=== PATIENT | female | born 1935 | race Caucasian/White ===

== ENCOUNTER 2016-05-23 15:00 | Inpatient (IN) | payer OTHER ==
--- NOTE | ~2016-05-23 | FU ---
[facility] Nutrition Therapy DATE: 05/29/16 Patient: YANET RYDER Physician: VALERIE Address: [address] [place] [address] Room/Bed: [address] [place] [address], Zip: [place] [address] Admit Date: 05/23/16 Date of : 34 Height: 5 2 Weight: 145 65.8 NUTRITION MONITORING/FOLLOW-UP: Reason: Nutrition follow-up Anthropometrics: no new weight, BMI: 24.5 Labs: No new labs Meds: PPI, Vit D, Vit B12, NSIV @ 60 ml/hr, Laxative prn, Zofran prn, Solu-cortef GI: LBM 05/27, denies N/V/D Skin: Dry skin/bruise noted, no edema Assessment: Chart reviewed, events noted. Patient upgraded to regular diet on 05/24, Ensure not reordered. Patient reports consuming 50% or > of meals TID and does not want ONS reordered. Denies N/V/D or any chewing/swallowing difficulties. States she just wants to go home. No new weight. Previous nutrition goals met, nutrition dx remains with improvement. Dx: Inadequate nutrient intake r/t decreased appetite AEB 10-13% severe body weight loss - ACTIVE, WITH IMPROVEMENT Intervention: None at this time Monitoring, Evaluation and Goals: MET 1. PO 50% of meals or greater. 2. Prevent unintentional weight loss. Monitor: Per protocol, criteria to determine if above goals met Recommendations: Continue regular diet. Status: Mild nutrition risk Respectfully, [facility] Nutrition Therapy DATE: 05/29/16 Patient: YANET RYDER Physician: VALERIE Address: [address] [place] [address] Room/Bed: [address] [place] [address], Zip: [place] [address] Admit Date: 05/23/16 Date of : 34 Height: 5 2 Weight: [address], [facility] cc: client file
--- NOTE | ~2016-05-23 | A ---
[facility] Nutrition Therapy DATE: 05/24/16 Patient: YANET RYDER Physician: VALERIE Address: [address] [place] [address] Room/Bed: [address] [place] [address], Zip: [place] [address] Admit Date: 05/23/16 Date of : 34 Height: 5 2 Weight: 145 65.8 NUTRITIONAL ASSESSMENT: REASON: 4 NUTRITION RISK PT RE: WEIGHT LOSS, ALSO CONSULT RECEIVED PT IS 81 Y.O. FEMALE ADMITTED FOR DEHYDRATION PMH: NO RECENT H&P IN [facility]. PER CHART/PAST NOTES: COPD, CAD, HTN, HLD, COLITIS, GASRITIS, MENIERE DISEASE Anthropometrics: 5'2", WT: 134# (PER PT) (61 KG), BMI: 24.5 -PER [facility], 145# OTHER HEIGHT LISTED Labs: BUN: 28, ALB: 3.0, GFR: 50.5 Meds: NACL, ZOFRAN, LAXATIVE, VIT D & B12, PROTONIX I/O & Bowel function: 1200/- Skin Integrity: DRY SKIN NOTED ALL OVER BODY Estimated Nutrition Needs: INCREASED NUTRIENT NEEDS 2' WEIGHT LOSS NOTED, DECREASED PO INTAKE AND APPETITE NOTED, PMH CANCER Assessment: CHART REVIEWED AND EVENTS NOTED. PT SEEN FOR WEIGHT LOSS. PT REPORTS DECREASED PO INTAKE 2' DECREASED APPETITE PAST SEVERAL MONTHS. PT REPORTS UBW IS ~150#/NOTES LOSING ~15-20# SINCE OCTOBER 2015 (6 MONTHS)10-13% SEVERE WEIGHT LOSS NOTED. PT REPORTS LOSING WEIGHT SINCE HER LUNG CANCER DIAGNOSIS S/P RADIATION AND CHEMOTHERAPY. THIS RD ENCOURAGED ADEQUATE KCAL, PROTEIN AND FLUID INTAKE, PT AGREED TO ENSURE SHAKES BID + ENSURE PUDDING ONCE DAILY. PT REPORTED NO DIET QUESTIONS AT THIS TIME. RD TO FOLLOW. SEE RECOMMENDATIONS BELOW. Dx: INADEQUATE NUTRIENT INTAKE R/T DECREASED APPETITE AEB PT REPORT ABOVE, 10-13% SEVERE WEIGHT LOSS NOTED. Intervention: 1. MECHANICAL GROUND DIET 2. ENSURE SHAKES BID 3. ENSURE PUDDING BID Monitoring, Evaluation and Goals: 1. PO INTAKE; PROVIDE AND CONSUME ADEQUATE NUTRITION W/NO C/O N/V/D (PO>50%) 2. WEIGHTS; PREVENT FURTHER WEIGHT LOSS 3. GI; PROMOTE REGULAR GI FUNCTION 4. LABS; WNL [facility] Nutrition Therapy DATE: 05/24/16 Patient: YANET RYDER Physician: VALERIE Address: [address] [place] [address] Room/Bed: [address] [place] [address], Zip: [place] [address] Admit Date: 05/23/16 Date of : 34 Height: 5 2 Weight: 145 65.8 MONITOR: -PO INTAKE/APPETITE -WEIGHTS -SUPPLEMENT INTAKE Recommendations: 1. ORDER ROBB ENSURE SHAKES BID W/MEALS 2. ORDER ROBB ENSURE PUDDING ONCE DAILY W/LUNCH MEAL 3. APPRECIATE FAMILY AND STAFF TO ENCOURAGE ADEQUATE KCAL, PROTEIN AND FLUID INTAKE RD WILL F/U PER PROTOCOL PT IS MODERATELY COMPROMISED Respectfully, JOHNNY DOLAN MS, RD, LD [facility] cc: client file
--- NOTE | ~2016-05-23 | DS ---
Unit #: [id number] #: [id number] Patient: MADISON SMITH [id number] [address] [address] [id number] MR#: [id number] NAME: MADISON SMITH. ROOM: 232 Age: 81 Sex: F Admission Date: 05/23/2016 : 1935 Discharge Date: 05/30/2016 Attending Physician: Maurilio Rodriguez M.D. Primary Care Physician: Luzma Coyle M.D. DISCHARGE SUMMARY PRINCIPAL DIAGNOSES 1. Neutropenic sepsis secondary to #2 Klebsiella pneumoniae. 2. Klebsiella pneumoniae bacteremia. 3. Pancytopenic secondary to antineoplastic chemotherapy and radiation. 4. Moderate protein calorie malnutrition. 5. Radiation esophagitis. 6. Dehydration. 7. Cancer of the cecum. 8. Extensive small cell lung cancer. DISCHARGE MEDICATIONS Continue IV Rocephin 2 grams IV q.24 h. to be taken until 06/08/2016. Please see medication discharge summary. FOLLOWUP Office in two weeks. HOSPITAL COURSE Please see History and Physical for details of admission. 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 She has had weakness, dehydration, severe radiation esophagitis. Following admission, she was started on IV fluids, pain medications and became rapid pancytopenic. She was started on Granix but became febrile. Blood cultures grew Klebsiella pneumoniae sensitive to Maxipime which was started on and later switched over to cefepime. She received one dose of IV tobramycin. Granix was continued and she remained neutropenic until her discharge date but did become afebrile on IV antibiotics. She was seen by Dr. Dobbins of [place] and he recommended switching antibiotics to Rocephin 2 grams IV daily to be taken until 06/08/2016 without sacrifice of Mediport as it was felt that the most likely source of her bacteremia was gastrointestinal, most probably related to her cecal carcinoma. During hospitalization she received multiple units of packed cells for severe anemia, as well as replacement of electrolytes. Unit #: [id number] #: [id number] Patient: MADISON SMITH Dictated by... Maurilio Rodriguez M.D. [facility]/mega TD: 05/30/2016 23:27 JOB #: [id number] DISCHARGE SUMMARY X Maurilio Rodriguez MD DISCHARGE SUMMARY
[~2016-05-23 15:00] MED LIST: ACETAMINOPHEN PO; ADVAIR 250-501 EACH IH; ALBUTEROL17 GM INH; ALDACTONE25 MG PO; AMBIEN PO; AMLODIPINE BESY10 MG PO; ASPIR-TRIN325 MG; ASPIRIN EC81 M1 PO; ASPIRIN81 M1 PO; AUGMENTIN PO; AURALGAN EAR DR14 ML OT; AVALIDE 150-12.1 TAB PO; AZITHROMYCIN250 MG PO; BENZONATATE PO; CIPRO HC OTIC S10 ML AS; CIPRO PO; COMBIVENT U/D3 ML INH; COREG3.125 MG; FLAGYL PO; HCTZ PO; HYDROCHLOROTHIA25 MG PO; IBUPROFEN PO; LEVAQUIN PO; LIPITOR PO; LIPITOR20 MG PO; LISINOPRIL PO; LISINOPRIL20 MG PO; LOPRESSOR PO; LOSARTAN POTAS100 MG PO; MEDI-MECLIZINE25 M1 PO; MEDROL4 MG/DOSE- PO; METOPROLOL TAR25 MG PO; MOTION SICKNESS25 M5 PO; MOTRIN400 MG PO; MUCINEX DM ER1 EACH PO; NEXIUM PO; NICOTINE TRANSD21 MG EXT; NITROGLYGERIN0.4 MG; NITROGLYGERIN0.4 MG SL; NORVASC10 MG PO; NORVASC2.5 MG PO; PANTOPRAZOLE SO40 MG PO; PLAVIX PO; PREDNISONE PO; PREDNISONE10 MG/DOSE PO; PRILOSEC PO; PRILOSEC20 M1 PO; PRILOSEC20 MG PO; PRINIVIL40 MG PO; PROTONIX PO; ROBAXIN500 MG PO; ROBITUSSIN-DM120 ML PO; ROBITUSSIN15 MG/5 ML PO; SIMVASTATIN20 MG; SIMVASTATIN40 MG PO; SPIRIVA18 MCG INH; TUSSIN MAX15 MG/5 M1 PO; TUSSIONEX PENN473 ML PO; VICODIN 5/500 T1 TAB PO; ZESTORETIC 20/11 TAB PO; ZITHROMAX PO; ZOCOR PO
[2016-05-23] MEDS ORDERED: VITAMIN B122500 MCG PO (16:39)
[2016-05-23] MEDS ORDERED: VITAMIN D50000 UNIT PO (16:42)
[2016-05-23] MEDS ORDERED: LIPITOR40 MG PO (16:44)
[2016-05-23 17:38] LABS: HEMATOCRIT 27.3 % (35.0-45.0); HEMOGLOBIN 9.3 gm/dL (12.0-16.0); MEAN CELL VOLUME 91.1 FL (83-96); MEAN PLATELET VOLUME 7.3 FL (6.5-11.5); WHITE BLOOD COUNT 3.1 X10e3 (4.0-10.5)
[2016-05-23 18:05] LABS: ALBUMIN SERUM 3.9 g/dL (3.5-5.0); BILIRUBIN,TOTAL 0.9 mg/dL (0.2-2.0); BUN/CREATININE RATIO 24.61; CREATININE SERUM 1.3 mg/dL (0.6-1.4); GLOM FILT RATE Estimated 41.7 mL/min (>60); POTASSIUM 3.7 mmol/L (3.5-5.1); PROTEIN TOTAL SERUM 7.3 g/dL (6.0-8.3)
[2016-05-24 06:35] LABS: HEMATOCRIT 21.5 % (35.0-45.0); MEAN CELL VOLUME 90.7 FL (83-96); MEAN CORPUSCULAR HEMOGLOBIN 30.1 PG (28-34); MEAN CORPUSCULAR HGB CONC 33.2 g/dL (30-36); MEAN PLATELET VOLUME 7.5 FL (6.5-11.5); RED BLOOD COUNT 2.37 X10e (3.90-5.30); RED CELL DISTRIBUTION WIDTH 26.4 % (11.0-15.5)
[2016-05-24 06:38] LABS: HEMOGLOBIN 7.1 gm/dL (12.0-16.0); WHITE BLOOD COUNT 1.3 X10e3 (4.0-10.5)
[2016-05-24 07:02] LABS: BILIRUBIN,TOTAL 0.6 mg/dL (0.2-2.0); BUN/CREATININE RATIO 25.45; CALCIUM SERUM 8.4 mg/dL (8.4-10.2); CREATININE SERUM 1.1 mg/dL (0.6-1.4); GLOM FILT RATE Estimated 50.5 mL/min (>60); MAGNESIUM 1.6 mg/dL (1.6-3.0); PHOSPHOROUS 3.1 mg/dL (2.5-4.6); POTASSIUM 3.8 mmol/L (3.5-5.1); PROTEIN TOTAL SERUM 5.8 g/dL (6.0-8.3)
[2016-05-24 10:55] LABS: IRON SERUM 87 ug/dL (28-170); TOTAL IRON BINDING CAPACITY 267 ug/dL (269-535); TRANSFERRIN 191 mg/dL (192-382); TRANSFERRIN SATURATION 33 % (20-50)
[2016-05-24 11:03] LABS: FERRITIN 736 ng/mL (11-307)
[2016-05-25 06:32] LABS: HEMATOCRIT 23.6 % (35.0-45.0); HEMOGLOBIN 7.9 gm/dL (12.0-16.0); MEAN CELL VOLUME 89.7 FL (83-96); MEAN CORPUSCULAR HEMOGLOBIN 30.1 PG (28-34); MEAN CORPUSCULAR HGB CONC 33.6 g/dL (30-36); MEAN PLATELET VOLUME 7.5 FL (6.5-11.5); RED BLOOD COUNT 2.63 X10e (3.90-5.30); RED CELL DISTRIBUTION WIDTH 23.3 % (11.0-15.5)
[2016-05-25 06:48] LABS: WHITE BLOOD COUNT 0.5 X10e3 (4.0-10.5)
[2016-05-25 06:59] LABS: CALCIUM SERUM 8.2 mg/dL (8.4-10.2); GLOM FILT RATE Estimated 56.4 mL/min (>60); MAGNESIUM 1.4 mg/dL (1.6-3.0); POTASSIUM 3.5 mmol/L (3.5-5.1)
[2016-05-26 05:46] LABS: HEMATOCRIT 23.9 % (35.0-45.0); HEMOGLOBIN 8.1 gm/dL (12.0-16.0); MEAN CELL VOLUME 90.5 FL (83-96); MEAN CORPUSCULAR HEMOGLOBIN 30.6 PG (28-34); MEAN CORPUSCULAR HGB CONC 33.8 g/dL (30-36); MEAN PLATELET VOLUME 8.4 FL (6.5-11.5); RED BLOOD COUNT 2.64 X10e (3.90-5.30); RED CELL DISTRIBUTION WIDTH 22.7 % (11.0-15.5); WHITE BLOOD COUNT 0.3 X10e3 (4.0-10.5)
[2016-05-26 07:13] LABS: BLOOD UREA NITROGEN 14 mg/dL (9-23); BUN/CREATININE RATIO 15.55; CALCIUM SERUM 8.2 mg/dL (8.4-10.2); CARBON DIOXIDE 19 mmol/L (22-31); CHLORIDE 109 mmol/L (100-111); CREATININE SERUM 0.9 mg/dL (0.6-1.4); GLOM FILT RATE Estimated ABOVE60 mL/min (>60); GLUCOSE FASTING 100 mg/dL (70-110); MAGNESIUM 1.6 mg/dL (1.6-3.0); POTASSIUM 3.5 mmol/L (3.5-5.1); SODIUM 137 mmol/L (135-145)
[2016-05-27 05:27] LABS: HEMATOCRIT 19.9 % (35.0-45.0); MEAN CELL VOLUME 90.7 FL (83-96); MEAN CORPUSCULAR HEMOGLOBIN 31.1 PG (28-34); MEAN CORPUSCULAR HGB CONC 34.2 g/dL (30-36); MEAN PLATELET VOLUME 8.9 FL (6.5-11.5); RED BLOOD COUNT 2.19 X10e (3.90-5.30); RED CELL DISTRIBUTION WIDTH 22.1 % (11.0-15.5); WHITE BLOOD COUNT 0.3 X10e3 (4.0-10.5)
[2016-05-27 05:29] LABS: HEMOGLOBIN 6.8 gm/dL (12.0-16.0)
[2016-05-28 06:56] LABS: HEMATOCRIT 27.2 % (35.0-45.0); MEAN CELL VOLUME 90.1 FL (83-96); MEAN CORPUSCULAR HEMOGLOBIN 30.4 PG (28-34); MEAN CORPUSCULAR HGB CONC 33.7 g/dL (30-36); MEAN PLATELET VOLUME 8.6 FL (6.5-11.5); RED BLOOD COUNT 3.02 X10e (3.90-5.30); RED CELL DISTRIBUTION WIDTH 19.6 % (11.0-15.5)
[2016-05-28 06:59] LABS: HEMOGLOBIN 9.2 gm/dL (12.0-16.0); WHITE BLOOD COUNT 0.5 X10e3 (4.0-10.5)
[2016-05-28 14:55] LABS: URINE SOURCE CLEAN CATCH
[2016-05-28 17:14] LABS: URINE APPEARANCE CLEAR; URINE BILIRUBIN NEG (NEG); URINE BLOOD 1+ (NEG); URINE COLOR YELLOW; URINE GLUCOSE NEG (NEG); URINE KETONE NEG (NEG); URINE LEUKOCYTE ESTERASE NEG (NEG); URINE NITRATE NEG (NEG); URINE PROTEIN TRACE (NEG); URINE SPECIFIC GRAVITY 1.012 (1.003-1.035); URINE UROBILINOGEN 0.2 MG/DL (NEG)
[2016-05-28 17:17] LABS: URINE BACTERIA AUWI NEG (NEGATIVE); URINE SQUAMOUS EPITHELIAL CELL OCC /[HPF]
[2016-05-28 17:25] LABS: CULTURE INDICATED? NO
[2016-05-29 06:25] LABS: HEMATOCRIT 27.4 % (35.0-45.0); HEMOGLOBIN 9.4 gm/dL (12.0-16.0); MEAN CORPUSCULAR HEMOGLOBIN 30.4 PG (28-34); MEAN CORPUSCULAR HGB CONC 34.2 g/dL (30-36); MEAN PLATELET VOLUME 8.6 FL (6.5-11.5); RED BLOOD COUNT 3.09 X10e (3.90-5.30); RED CELL DISTRIBUTION WIDTH 18.7 % (11.0-15.5)
[2016-05-29 06:26] LABS: WHITE BLOOD COUNT 1.2 X10e3 (4.0-10.5)
[2016-05-30] MEDS ORDERED: CEFTRIAXONE2 GM IV (08:55)
[2016-05-30 08:59] LABS: HEMATOCRIT 29.4 % (35.0-45.0); MEAN CELL VOLUME 88.8 FL (83-96); MEAN CORPUSCULAR HEMOGLOBIN 30.2 PG (28-34); MEAN PLATELET VOLUME 8.7 FL (6.5-11.5); RED BLOOD COUNT 3.31 X10e (3.90-5.30); RED CELL DISTRIBUTION WIDTH 19.1 % (11.0-15.5)
[2016-05-30 09:13] LABS: WHITE BLOOD COUNT 5.3 X10e3 (4.0-10.5)
[2016-05-30 11:23] LABS: ALBUMIN SERUM 2.8 g/dL (3.5-5.0); ALKALINE PHOSPHATASE 85 U/L (32-92); ALT (SGPT) 15 U/L (10-40); AST (SGOT) 17 U/L (10-42); BILIRUBIN,TOTAL 0.6 mg/dL (0.2-2.0); BLOOD UREA NITROGEN 9 mg/dL (9-23); BUN/CREATININE RATIO 11.25; CALCIUM SERUM 8.4 mg/dL (8.4-10.2); CARBON DIOXIDE 21 mmol/L (22-31); CHLORIDE 110 mmol/L (100-111); CREATININE SERUM 0.8 mg/dL (0.6-1.4); GLOM FILT RATE Estimated ABOVE60 mL/min (>60); GLUCOSE FASTING 88 mg/dL (70-110); PROTEIN TOTAL SERUM 5.7 g/dL (6.0-8.3); SODIUM 139 mmol/L (135-145)
[2016-05-30 11:25] LABS: POTASSIUM 2.9 mmol/L (3.5-5.1)
== END 2016-05-30 14:55 | disposition home health service (06) | DRG 808 ==
LOC: C2A 15:00
PROVIDERS: Internal Medicine; Internal Medicine Hematology & Oncology; Nurse Practitioner Family
PROC: 30233N1 Transfusion of Nonautologous Red Blood Cells into Peripheral Vein, Percutaneous Approach (ICD-10-PCS; principal; 2016-05-24)
DX: D61.810 Antineoplastic chemotherapy induced pancytopenia (principal); A41.89 Other specified sepsis; C78.5 Secondary malignant neoplasm of large intestine and rectum; E44.0 Moderate protein-calorie malnutrition; B96.1 Klebsiella pneumoniae [K. pneumoniae] as the cause of diseases classified elsewhere; C34.90 Malignant neoplasm of unspecified part of unspecified bronchus or lung; Z16.19 Resistance to other specified beta lactam antibiotics; K20.8 Other esophagitis; Z68.24 Body mass index [BMI] 24.0-24.9, adult; R50.81 Fever presenting with conditions classified elsewhere
CPT/HCPCS: 80048; 80053; 81003; 82607; 82728; 83540; 83550; 83735; 84100; 85027; 86850; 86900; 86901; 86923; 87040; 87077; 87086; 87186; C9113; J0692; J0696; J1170; J1447; J1450; J1642; J1650; J2405; J3260; J3475; P9016

== ENCOUNTER 2016-06-10 10:04 | Observation (INO) | payer OTHER ==
--- NOTE | ~2016-06-10 | CT4 ---
[facility] A Service of [facility] RADIOLOGY TEXT RESULTS PATIENT: YANET RYDER LOCATION: [facility] [id number] : 34 UNIT #: [id number] AGE: [address]: Madhuri Yu MD SEX: F ORDER DR: [id number] [facility] [address] [facility]. [place], [place] [address] [id number] I MR#: [id number] Acc #: [id number] NAME: YANET RYDER. : 1935 SEX: F STUDY DATE/TIME: 06/10/2016 12:30 UNIT: [id number] ROOM: [facility] STUDY DESCRIPTION: CT Abd and Pelv Wo Cont Attending Physician: Madhuri Yu M.D. Ordering Physician: Epifanio Nunez M.D. Primary Care Physician: Luzma Coyle M.D. MEDICAL IMAGING REPORT This report is preliminary unless electronic signature is present EXAM CT abdomen and pelvis without contrast 06/10/2016 HISTORY 81-year-old female with abdominal pain for 3 days. History of lung cancer. Patient is status post appendectomy and cholecystectomy. COMPARISON CT abdomen and pelvis 03/23/2010 TECHNIQUE Helical scan performed through the abdomen and pelvis without oral or IV contrast. Coronal and sagittal reformatted images. This CT exam was performed with one or more of the following radiation dose reduction techniques: Automatic exposure control, adjustment of mA and/or kV according to patient size, and iterative reconstruction. FINDINGS Visualized lung base demonstrates mild pleural thickening and scarring in the left base. The liver, spleen, pancreas, and both kidneys are within normal limits. Right adrenal gland is unremarkable. 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 There is a 3.3 cm infrarenal abdominal aortic aneurysm. 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 Small bowel is unremarkable without obstruction. The appendix is surgically absent. There is moderate circumferential colonic wall thickening and pericolonic inflammatory stranding at the cecum. This may reflect infectious or inflammatory colitis. The remainder of the colon is unremarkable. No free fluid or free air. [facility] A Service of [facility] RADIOLOGY TEXT RESULTS PATIENT: YANET RYDER LOCATION: [place] [address] : 34 UNIT #: [id number] AGE: [address]: Madhuri Yu MD SEX: F ORDER DR: Urinary bladder is unremarkable. Uterus surgically absent. No free pelvic fluid. No acute bony abnormalities. Advanced left hip arthrosis. IMPRESSION 1. Moderate colonic wall thickening and pericolonic inflammatory stranding involving the cecum. This may reflect infectious or inflammatory colitis. The appendix is surgically absent. 2. 3.3 cm infrarenal abdominal aortic aneurysm. There is also ectasia of the descending thoracic aorta at the diaphragmatic hiatus measuring 3.6 cm. 3. Cholecystectomy. 4. Stable left adrenal myelolipoma. 5. Hysterectomy. 6. Advanced left hip arthrosis. Dictated by... Lavelle Snyder M.D. THIS IS AN ELECTRONICALLY VERIFIED REPORT Lavelle Snyder M.D. at 06/12/2016 8:33 AM HUA/afizan TD: 06/11/2016 10:02 JOB #: [id number] MEDICAL IMAGING REPORT Page 1 of 1 COPY
--- NOTE | ~2016-06-10 | HP ---
Unit #: [id number] #: [id number] Patient: YANET RYDER [id number] [address] [address] [id number] E MR#: [id number] NAME: YANET RYDER ROOM: Age: 81 Sex: F Admission Date: 06/10/2016 : 1935 Attending Physician: Epifanio Nunez M.D. Primary Care Physician: Luzma Coyle M.D. HISTORY AND PHYSICAL CHIEF COMPLAINT Nausea and vomiting. HISTORY OF PRESENT ILLNESS The patient is an 81-year-old female with past medical history of small cell lung cancer, cecal cancer, radiation esophagitis, coronary artery disease, hypertension, hyperlipidemia, COPD, Meniere disease, peripheral arterial disease, who presented to the emergency department for evaluation of the above. The patient states that she has not been feeling well since 06/07/2016. She states that she has had abdominal pain in her lower abdomen. She describes it as "aching." It has been intermittent in nature. There are no exacerbating or alleviating factors. She has had nausea and dry heaves. She denies any diarrhea. She states that she had a normal bowel movement yesterday. Denies any blood in the stool or black tarry stool. She denies any fever, no chest pain. In the emergency department, CT of the abdomen and pelvis was done and showed findings concerning for colitis. She was given 1 liter of normal saline as well as morphine and Zofran as well as Zosyn. She is being admitted to [facility] for evaluation and further treatment. PAST MEDICAL HISTORY 1. Admission to [facility] 05/23 to 05/30/2016 for neutropenic sepsis secondary to Klebsiella pneumoniae. She was discharged home on Rocephin to be taken until 06/08/2016. She states that she completed the antibiotics as prescribed. 2. Small cell lung cancer. 3. History of cecal cancer. Her last radiation treatment was on 05/16/2016. Last chemotherapy 05/18/2016. 4. Radiation esophagitis. 5. Coronary artery disease, status post coronary artery bypass grafting. 6. Hypertension. 7. Hyperlipidemia. 8. COPD. 9. Meniere disease. 10. Peripheral arterial disease with high-grade stenosis in the right iliac artery. She also has an aortic aneurysm. PAST SURGICAL HISTORY 1. Coronary artery bypass grafting. 2. Cardiac stent. Unit #: [id number] #: [id number] Patient: YANET RYDER 3. Hysterectomy. 4. Cholecystectomy. 5. Appendectomy. ALLERGIES 1. Sulfa. 2. Levaquin. HOME MEDICATIONS 1. Amlodipine 10 mg daily. 2. Vitamin B12 1000 mcg weekly. 3. Vitamin D 50,000 units weekly. 4. Lipitor 40 mg daily. SOCIAL HISTORY The patient lives with her . She quit smoking. She denies alcohol use. Her CODE STATUS is a FULL CODE. FAMILY HISTORY Notable for coronary artery disease. REVIEW OF SYSTEMS A complete review of systems is negative except as indicated in the HPI. The patient states that she has lost about 18 pounds over the past six months. PHYSICAL EXAMINATION VITAL SIGNS: Temperature 97.6, pulse 99, respirations 16, blood pressure 137/59, oxygen saturation 100% on room air. GENERAL: The patient is a female is awake and alert in no acute distress. HEENT: Head is atraumatic. Mucous membranes are dry. NECK: Supple. Trachea is midline. LUNGS: Clear to auscultation bilaterally with no increased work of breathing. HEART: Regular rate and rhythm. ABDOMEN: Soft. She is tender to palpation in the bilateral lower quadrants. Bowel sounds present in all four quadrants. EXTREMITIES: Nontender with no pedal edema. NEUROLOGIC: Patient is awake and alert. She follows commands. PSYCHIATRIC: Mood and affect are normal. Patient is cooperative. SKIN OF EXAMINED AREAS: Warm and dry. DIAGNOSTIC STUDIES LABORATORY: Complete blood count notable for hemoglobin 10.2, hematocrit 30.8. Comprehensive metabolic panel notable for albumin 3.4, lipase 11. CARDIOVASCULAR: CT abdomen and pelvis shows findings suggestive of colitis. ASSESSMENT The patient is an 81-year-old female with: 1. Acute colitis. She received Zosyn in the emergency department. 2. Normocytic anemia. The patient's hemoglobin was 10 on 05/30/2016 and is 10.2 today. 3. History of small cell lung cancer. 4. History of cecal cancer, status post radiation and chemotherapy with last treatments being 05/16/2016 and 05/18/2016 respectively. Unit #: [id number] #: [id number] Patient: YANET RYDER 5. Radiation esophagitis. 6. Coronary artery disease, status post coronary artery bypass grafting. 7. Hypertension. 8. Hyperlipidemia. 9. Chronic obstructive pulmonary disease. 10. Meniere disease. 11. Peripheral arterial disease. 12. Former smoker. PLAN 1. Admit for observation to med-surg. 2. N.p.o. except ice chips. 3. Blood cultures x2. 4. Stool studies. 5. Zosyn pending further workup. 6. P.r.n. morphine. 7. P.r.n. Zofran. 8. Normal saline at 100 mL/hour. 9. Supplemental oxygen. 10. P.r.n. DuoNeb. 11. Check urinalysis. 12. SCDs for DVT prophylaxis. 13. Repeat labs in the morning. 14. Additional workup and consultants based on above. Dictated by Rafa Mtz/mega TD: 06/10/2016 17:05 JOB #: [id number] HISTORY AND PHYSICAL X Rosalia Koo MD X HISTORY AND PHYSICAL
--- NOTE | ~2016-06-10 | DS ---
Unit #: [id number] #: [id number] Patient: YANET RYDER [id number] [address] [address] [id number] I MR#: [id number] NAME: YANET RYDER. ROOM: 459 Age: 81 Sex: F Admission Date: 06/10/2016 : 1935 Discharge Date: 06/11/2016 Attending Physician: Madhuri Yu M.D. Primary Care Physician: Luzma Coyle M.D. DISCHARGE SUMMARY PRIMARY CARE PROVIDER Dr. Coyle. PRINCIPAL DIAGNOSES 1. Acute colitis. 2. Intractable nausea and vomiting, now resolved. 3. Small cell lung cancer. 4. History of cecal cancer with last chemotherapy on 05/18/2016. 5. Radiation esophagitis. 6. Coronary artery disease. 7. Peripheral arterial disease. 8. Hypertension. 9. Hyperlipidemia. 10. Chronic obstructive pulmonary disease. 11. Meniere disease. 12. Mild protein malnutrition. 13. Mild leukopenia with discharge white blood cell count of 3.6. 14. Normocytic anemia with discharge hemoglobin of 9.4. CONSULTANTS None. PROCEDURES CT scan of the abdomen and pelvis revealing colitis. CLINICAL HISTORY AND HOSPITAL COURSE Ms. Ryder is a nice 81-year-old female, who presents to emergency department with intractable nausea, vomiting, and abdominal pain. This was not associated with diarrhea. Please refer H and P for further details. CT scan of the abdomen and pelvis in the emergency department revealed a colitis and the patient was started on Zosyn. However, she did not have any fever, did not have any leukocytosis or leukopenia. Initially, she was placed in observation. The patient was maintained on Zosyn therapy in this morning. States she is still having diarrhea and her abdominal pain has resolved. She is very hungry and currently awaiting diet, but she is able to tolerate a diet. I think she can be safely discharged home on oral antibiotics. Today, she does have a mild leukopenia with white blood cell count of 3.6, and this can be followed up by her physician with whom she has an appointment this . DISCHARGE CONDITION Unit #: [id number] #: [id number] Patient: YANET RYDER Stable. DISCHARGE STATUS Discharged to home. DISCHARGE MEDICATIONS Augmentin 875 mg b.i.d., Norvasc 10 mg daily, Lipitor 40 mg at bedtime, vitamin B12 1000 mcg weekly, vitamin D 57222 units weekly. DISCHARGE INSTRUCTIONS The patient was instructed to follow a regular diet. She can increase her activity as tolerated. FOLLOWUP The patient will follow up with her primary provider, Dr. Coyle on as previously scheduled. Dictated by... Madhuri Yu M.D. DIANNE/kane TD: 06/12/2016 05:17 JOB #: [id number] DISCHARGE SUMMARY Page 1 of 1 X Madhuri Yu MD X DISCHARGE SUMMARY
[~2016-06-10 10:04] MED LIST changes: +CEFTRIAXONE2 GM IV; +LIPITOR40 MG PO; +VITAMIN B122500 MCG PO; +VITAMIN D50000 UNIT PO
[2016-06-10 11:25] LABS: BASOPHIL% 0.7 % (0-2.5); EOSINOPHIL% 0.3 % (0.0-7.0); HEMATOCRIT 30.8 % (35.0-45.0); HEMOGLOBIN 10.2 gm/dL (12.0-16.0); LYMPHOCYTE# 0.6 X10e3 (1.0-3.5); LYMPHOCYTE% 11.3 % (17.0-45.0); MEAN CELL VOLUME 91.3 FL (83-96); MEAN CORPUSCULAR HEMOGLOBIN 30.1 PG (28-34); MEAN PLATELET VOLUME 7.8 FL (6.5-11.5); MONOCYTE# 0.7 X10e3 (0-1.0); MONOCYTE% 13.6 % (3.0-12.0); NEUTROPHIL# 4.1 X10e3 (1.5-7.1); NEUTROPHIL% 74.1 % (40-75); PLATELET COUNT 239 X10e3 (140-420); RED BLOOD COUNT 3.37 X10e (3.90-5.30); RED CELL DISTRIBUTION WIDTH 18.6 % (11.0-15.5); WHITE BLOOD COUNT 5.5 X10e3 (4.0-10.5)
[2016-06-10 11:26] LABS: DIFF IND NO
[2016-06-10 11:55] LABS: ALBUMIN SERUM 3.4 g/dL (3.5-5.0); BILIRUBIN, DIRECT 0.1 mg/dL (0.0-0.2); BILIRUBIN,INDIRECT 0.5 mg/dL (0.0-0.9); BILIRUBIN,TOTAL 0.6 mg/dL (0.2-2.0); CALCIUM SERUM 8.9 mg/dL (8.4-10.2); GLOM FILT RATE Estimated 56.4 mL/min (>60); POTASSIUM 3.7 mmol/L (3.5-5.1); PROTEIN TOTAL SERUM 6.6 g/dL (6.0-8.3)
[2016-06-10 18:21] LABS: URINE APPEARANCE CLEAR; URINE BILIRUBIN NEG (NEG); URINE BLOOD TRACE (NEG); URINE COLOR YELLOW; URINE GLUCOSE NEG (NEG); URINE KETONE NEG (NEG); URINE LEUKOCYTE ESTERASE NEG (NEG); URINE NITRATE NEG (NEG); URINE PROTEIN NEG (NEG); URINE SPECIFIC GRAVITY 1.014 (1.003-1.035); URINE UROBILINOGEN 0.2 MG/DL (NEG)
[2016-06-10 18:24] LABS: URINE BACTERIA AUWI NEG (NEGATIVE); URINE SQUAMOUS EPITHELIAL CELL OCC /[HPF]; UWBCS1 AUWI 0-2 (0-5)
[2016-06-11 03:18] LABS: HEMATOCRIT 27.9 % (35.0-45.0); HEMOGLOBIN 9.4 gm/dL (12.0-16.0); MEAN CELL VOLUME 92.4 FL (83-96); MEAN CORPUSCULAR HEMOGLOBIN 31.1 PG (28-34); MEAN CORPUSCULAR HGB CONC 33.7 g/dL (30-36); MEAN PLATELET VOLUME 7.7 FL (6.5-11.5); RED BLOOD COUNT 3.02 X10e (3.90-5.30); WHITE BLOOD COUNT 3.6 X10e3 (4.0-10.5)
[2016-06-11 04:00] LABS: ALKALINE PHOSPHATASE 98 U/L (32-92); ALT (SGPT) 25 U/L (10-40); AST (SGOT) 74 U/L (10-42); BILIRUBIN,TOTAL 0.8 mg/dL (0.2-2.0); BLOOD UREA NITROGEN 8 mg/dL (9-23); BUN/CREATININE RATIO 8.88; CALCIUM SERUM 8.4 mg/dL (8.4-10.2); CARBON DIOXIDE 26 mmol/L (22-31); CHLORIDE 104 mmol/L (100-111); CREATININE SERUM 0.9 mg/dL (0.6-1.4); GLOM FILT RATE Estimated ABOVE60 mL/min (>60); GLUCOSE FASTING 81 mg/dL (70-110); PROTEIN TOTAL SERUM 5.5 g/dL (6.0-8.3); SODIUM 137 mmol/L (135-145)
[2016-06-11] MEDS ORDERED: AUGMENTIN875 M1 PO (10:38)
== END 2016-06-11 11:45 | disposition home or self-care (01) ==
LOC: CED 10:04 → CEDOF 15:30 → C4B 17:28
PROVIDERS: Emergency Medicine; Family Medicine
DX: K52.9 Noninfective gastroenteritis and colitis, unspecified (principal); C34.90 Malignant neoplasm of unspecified part of unspecified bronchus or lung; Z85.038 Personal history of other malignant neoplasm of large intestine; Z92.21 Personal history of antineoplastic chemotherapy; K20.8 Other esophagitis; I25.10 Atherosclerotic heart disease of native coronary artery without angina pectoris; I73.9 Peripheral vascular disease, unspecified; I10 Essential (primary) hypertension; E78.5 Hyperlipidemia, unspecified; J44.9 Chronic obstructive pulmonary disease, unspecified; H81.09 Meniere's disease, unspecified ear; E44.1 Mild protein-calorie malnutrition; D72.819 Decreased white blood cell count, unspecified; D64.9 Anemia, unspecified; Z95.5 Presence of coronary angioplasty implant and graft; Z82.49 Family history of ischemic heart disease and other diseases of the circulatory system; Z90.49 Acquired absence of other specified parts of digestive tract; Z90.710 Acquired absence of both cervix and uterus; Z88.2 Allergy status to sulfonamides; Z88.1 Allergy status to other antibiotic agents
CPT/HCPCS: 36415; 74176; 80048; 80053; 80076; 81003; 83690; 85025; 85027; 87040; 87086; 94640; 96365; 96375; 96376; 99285; G0378; J1642; J2270; J2405; J2543

== ENCOUNTER 2016-06-18 13:45 | Inpatient (IN) | payer OTHER ==
--- NOTE | ~2016-06-18 | HP ---
Unit #: [id number] #: [id number] Patient: YANET RYDER [id number] [place] [address] [facility]. [place], [place] [address] [id number] MR#: [id number] NAME: YANET RYDER ROOM: 202 Age: 81 Sex: F Admission Date: 06/18/2016 : 1935 Attending Physician: Rosalia Koo M.D. Primary Care Physician: Luzma Coyle M.D. HISTORY AND PHYSICAL CHIEF COMPLAINT Abdominal pain. HISTORY OF PRESENT ILLNESS The patient is an 81-year-old female with a past medical history of cecal cancer, lung cancer, radiation esophagitis, coronary artery disease, peripheral arterial disease, hypertension, hyperlipidemia and chronic obstructive pulmonary disease. He was a direct admit from Dr. Rodriguez for evaluation of the above. Of note, the patient was hospitalized at [facility] 06/10/2016 through 06/11/2016 for acute colitis with intractable nausea and vomiting. She was discharged home on Augmentin. She apparently saw her primary care physician later that afternoon, who advised discontinuing the antibiotics. The patient has had persistent abdominal pain. The pain is in the lower abdomen. She describes it as "sharp." It radiates to her back. It has been fairly constant in nature. There are no exacerbating or alleviating factors. She denies any fever. Her last bowel movement was yesterday and she described it as "loose." There was no blood in the stool or black tarry stool. She has had nausea and one bout of emesis within the past 24 hours. She states that she has lost about 5 pound sin the past week. She was seen today in Dr. Rodriguez's office and sent to [facility] for evaluation and further treatment. PAST MEDICAL HISTORY 1. Admission to [facility] 06/10/2016 through 06/11/2016 for acute colitis. She was discharged home on Augmentin, which was discontinued by the primary care physician later that day. 2. History of cecal cancer followed by Dr. Rodriguez. 3. History of inbbe-pxwr-[id number] cancer. The last radiation treatment was 05/16/2016. Last chemotherapy 05/18/2016. 4. History of radiation esophagitis. 5. Coronary artery disease, status post coronary artery bypass grafting. 6. Peripheral arterial disease with high-grade stenosis in the right iliac artery. She also has an aortic aneurysm. 7. Hypertension. 8. Hyperlipidemia. 9. Chronic obstructive pulmonary disease. 10. History of Meniere disease. PAST SURGICAL HISTORY 1. Coronary artery bypass grafting. Unit #: [id number] #: [id number] Patient: YANET RYDER 2. Cardiac stent placement. 3. Hysterectomy. 4. Cholecystectomy. 5. Appendectomy. SOCIAL HISTORY The patient lives with her . She quit smoking. There is no alcohol use. Her code status is a full code. FAMILY HISTORY Notable for coronary artery disease. ALLERGIES Sulfa and Levaquin. HOME MEDICATIONS 1. Amlodipine 10 mg daily. 2. Vitamin B12 1000 mcg weekly. 3. Vitamin D 50,000 units weekly. 4. Lipitor 40 mg daily. Home medications will need to be reviewed and verified. REVIEW OF SYSTEMS A complete review of systems is negative except as indicated in the history of present illness. PHYSICAL EXAMINATION GENERAL: The patient is a female who is awake and alert, sitting on the side of the bed. VITALS: Currently pending. HEENT: The head is atraumatic. Mucous membranes are moist. NECK: Supple. Trachea midline. LUNGS: Clear to auscultation bilaterally with no increased work of breathing. HEART: Regular rate and rhythm. ABDOMEN: Soft. She is tender to palpation in the lower quadrants. Bowel sounds are present in all four quadrants. EXTREMITIES: Nontender with no pedal edema. NEUROLOGIC: The patient is awake and alert. She follows commands. PSYCHIATRIC: Mood and affect are normal. The patient is cooperative. SKIN: Skin of examined areas is warm and dry. DIAGNOSTIC STUDIES Pending. ASSESSMENT The patient is an 81-year-old female with 1. Abdominal pain. 2. History of cecal cancer. 3. History of lung cancer, status post radiation and chemotherapy, last in 04/2016. 4. History of radiation esophagitis. 5. Coronary artery disease, status post coronary artery bypass grafting. 6. Peripheral arterial disease with high-grade stenosis in the right iliac artery as well as an aortic aneurysm. 7. Hypertension. 8. Hyperlipidemia. Unit #: [id number] #: [id number] Patient: YANET RYDER 9. Chronic obstructive pulmonary disease. 10. Former smoker. PLAN 1. Admit for observation to intermediate level. 2. N.p.o. until results of CT. 3. CT of the abdomen and pelvis with IV and p.o. contrast for further evaluation of abdominal pain. History of cecal cancer. 4. Check labs including amylase and lipase. 5. EKG and cardiac enzymes. 6. P.r.n. morphine. 7. P.r.n. Zofran. 8. Normal saline at 100 mL an hour. 9. Consult [facility] regarding abdominal pain and hst of cecal cancer. 10. Consult Dr. Rodriguez regarding decal cancer. 11. SCDs for DVT prophylaxis. 12. Additional workup and consultants based on the above. CODE STATUS The patient is a full code. Dictated by Rosalia Koo M.D. SOMMER/sawyer TD: 06/18/2016 14:11 JOB #: [id number] HISTORY AND PHYSICAL Page 1 of 1 X Rosalia Koo MD X HISTORY AND PHYSICAL
--- NOTE | ~2016-06-18 | EKG ---
PATIENT: YANET RYDER UNIT #: [id number] Ventricular Rate: 78 BPM Atrial Rate: 78 BPM P-R Interval: 158 ms QRS Duration: 88 ms Q-T Interval: 384 ms QTC Calculation(Bezet): 437 ms P [place]: 56 degrees Calculated R Mcbee: 45 degrees Calculated T Mcbee: 80 degrees Diagnosis Line: Normal sinus rhythm Diagnosis Line: Normal ECG Diagnosis Line: No previous ECGs available Diagnosis Line: Confirmed by LINH PERRY MD ([id number]) on 06/20/2016 Diagnosis Line: 9:08:21 PM INTERPRETING MD: VICKY MORENO
--- NOTE | ~2016-06-18 | EKG ---
PATIENT: YANET RYDER UNIT #: [id number] Ventricular Rate: 92 BPM Atrial Rate: 92 BPM P-R Interval: 142 ms QRS Duration: 92 ms Q-T Interval: 318 ms QTC Calculation(Bezet): 393 ms P [place]: 3 degrees Calculated R [place]: 25 degrees Calculated T [place]: 124 degrees Diagnosis Line: Normal sinus rhythm Diagnosis Line: ST and T wave abnormality, consider lateral ischemia Diagnosis Line: Abnormal ECG Diagnosis Line: When compared with ECG of 18-JUN-2016 14:14, Diagnosis Line: Nonspecific T wave abnormality now evident in Diagnosis Line: Inferior leads Diagnosis Line: T wave inversion now evident in Anterolateral Diagnosis Line: leads Diagnosis Line: Confirmed by PRESTON WALLACE MD ([id number]) on 06/26/2016 Diagnosis Line: 10:24:51 PM INTERPRETING MD: RODRIGO MORENO
--- NOTE | ~2016-06-18 | TOC ---
Unit #: [id number] #: [id number] Patient: YANET SMITH [id number] [address] [address] [id number] I MR#: [id number] NAME: YANET SMITH ROOM: 448 Age: 81 Sex: F Admission Date: 06/18/2016 : 1935 Attending Physician: Madhuri Yu M.D. Primary Care Physician: Luzma Coyle M.D. TRANSFER OF CARE SUMMARY PRINCIPAL DIAGNOSES 1. Cecal cancer, poorly differentiated, status post extended right hemicolectomy. 2. Leukopenia, resolved. 3. Acute postop blood loss anemia. 4. Hypokalemia. 5. Hypomagnesemia. 6. 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 7. Hypertension. 8. Hyperlipidemia. 9. Chronic obstructive pulmonary disease. 10. Coronary artery disease. 11. Peripheral arterial disease. 12. Mild protein malnutrition. CONSULTANTS 1. Dr. Chavez, General Surgery. 2. Dr. Montiel, Pulmonology. 3. Dr. Land, Cardiology. 4. Dr. Rodriguez, Oncology. PROCEDURES 1. Exploratory laparotomy with extended right hemicolectomy on June 20, 2016. 2. CT scan of abdomen and pelvis, on June 18, 2016, with thickening of the cecum, nodular component in the posterior medial margin of the cecum concerning for focal area of trans-serosal extension. 3. CT of the chest without contrast, on June 18, 2016, with decreasing size of left lower lobe mass measuring 7 x 12 mm. Left axillary lymph node and hilar adenopathy are not noted. Myelolipoma of left adrenal gland noted. CLINICAL HISTORY AND HOSPITAL COURSE Ms. Smith is a very nice, 81-year-old female with a history of cecal cancer and small-cell lung cancer of the left lung, who presents to the emergency department with recurrent abdominal pain. Please refer to H and P for further details. CT scan of the abdomen and pelvis in the emergency department revealed consistent inflammation of the cecal region for which the patient had recently been treated with antibiotics though she did not complete a course of therapy as outlined in the H and P. She was subsequently admitted. General Surgery and Dr. Rodriguez were consulted given concern for recurrent underlying cecal cancer. Ultimately, plan was made for right Unit #: [id number] #: [id number] Patient: YANET SMITH hemicolectomy, which patient underwent on the . Postoperatively, she has done exceptionally well. Pain has been controlled. She is tolerating liquids and she has been up walking. Initial pathology does reveal a poorly differentiated cancer but margins are clear and lymph nodes are negative. This will continue to be followed by Dr. Rodriguez. Dr. Land and Dr. Montiel were consulted for preoperative evaluation. She has had no respiratory or cardiac issues throughout hospitalization. I anticipate discharge within the next three to four days to home with home health. Further hospital course will be dictated as an addendum. Dictated by... Madhuri Yu M.D. DIANNE/faizan TD: 06/22/2016 09:17 JOB #: [id number] TRANSFER OF CARE SUMMARY Page 1 of 1 X Madhuri Yu MD X TRANSFER OF CARE SUMMARY
--- NOTE | ~2016-06-18 | DS ---
Unit #: [id number] #: [id number] Patient: YANET RYDER [id number] [address] [address] [id number] I MR#: [id number] NAME: YANET RYDER ROOM: 469 Age: 81 Sex: F Admission Date: 06/18/2016 : 1935 Discharge Date: 06/24/2016 Attending Physician: Madhuri Yu M.D. Primary Care Physician: Luzma Coyle M.D. DISCHARGE SUMMARY REASON FOR ADMISSION/CURRENT DIAGNOSIS Cecal cancer poorly differentiated, status post extended right hemicolectomy. HISTORY OF PRESENT ILLNESS The patient is a very pleasant 81-year-old female with underlying history of small cell lung cancer of the left lung, who presented to the emergency department secondary to recurrent abdominal pain. Please refer to H and P as well as transition of care summary for details of initial part of the hospital stay. In essence General Surgery of Dr. Rodirguez, Dr. Land, and Dr. Montiel were all consulted in regard to the same. Ultimately, the patient underwent a right hemicolectomy. Postoperatively, she otherwise did well. She was able to tolerate diet. Pulmonary Services, Cardiology Services as well as Surgery Services all signed off from the patient. The patient routinely follows up with Dr. Rodriguez of Oncology Services secondary to history of lung carcinoma, and therefore, at the time of discharge, she will follow up with him in approximately 7 to 10 days. At the time of discharge, we will also set up home health. FINAL DISCHARGE DIAGNOSES 1. Cecal cancer poorly differentiated, status post extended right hemicolectomy. 2. Leukopenia, resolved. 3. Acute postop blood loss. Hemoglobin at the time of discharge, 8.4. 4. Left small cell lung carcinoma, currently on chemotherapy with CT chest this hospital admission showing regression. 5. Hypertension. 6. Hyperlipidemia. 7. Chronic obstructive pulmonary disease. 8. Coronary artery disease. FINAL DISCHARGE MEDICATIONS [place] 7.5 one tablet p.o. q.4 p.r.n., Colace 100 mg p.o. b.i.d. that to be bought [id number], and Protonix 40 mg p.o. b.i.d. DISCHARGE CONDITION Stable. DISCHARGE DISPOSITION Unit #: [id number] #: [id number] Patient: YANET RYDER Home with home health. Dictated by... Rafa Barrett/kane TD: 06/25/2016 03:28 JOB #: [id number] DISCHARGE SUMMARY Page 1 of 1 X Kareem Hearn MD X DISCHARGE SUMMARY
--- NOTE | ~2016-06-18 | OR ---
Unit #: [id number] #: [id number] Patient: YANET RYDER [id number] [address] [address] [id number] Isra MR#: [id number] NAME: YANET RYDER ROOM: 448 Date of Procedure: 06/20/2016 Admission Date: 06/18/2016 Surgeon: Ganga Chavez M.D. : 1935 Attending Physician: Madhuri Yu M.D. Primary Care Physician: Luzma Coyle M.D. OPERATIVE REPORT PREOPERATIVE DIAGNOSIS Cecal cancer. POSTOPERATIVE DIAGNOSIS Locally invasive right colon cancer. PROCEDURES PERFORMED 1. Exploratory laparotomy. 2. Extended right hemicolectomy. [employer]NACE [employer] [place]. ANESTHESIA General endotracheal anesthesia. ESTIMATED BLOOD LOSS Minimal. IV FLUIDS 800 crystalloid. COMPLICATIONS None. INDICATIONS FOR PROCEDURE The patient is an 81-year-old lady, who presents with a colon cancer. She presents for resection. DESCRIPTION OF PROCEDURE The patient was taken to the operating theater and placed in the supine position. General anesthesia was induced. Her abdomen was prepped and draped. A midline incision was then made. The abdominal cavity entered without difficulty. Upon entering the abdominal cavity, general exploration revealed a fixed tumor in the right lower quadrant. This was consistent with a locally invasive or desmoplastic reaction of a cecal tumor. I mobilized the hepatic flexure. I was able to free the tumor from the sidewall. It was unsure whether or not this meant invasive cancer versus desmoplastic reaction. I mobilized this to the midline and mobilized the remaining part of the hepatic flexure. There were multiple areas of omentum that were stuck down to the tumor. These were ligated with 0 silk sutures and left intact. I fired a SATNAM stapler across the Unit #: [id number] #: [id number] Patient: YANET RYDER distal ileum as well as another SATNAM stapler across the transverse colon, right colon junction. A jdme-oi-cezs staple anastomosis was then completed. The enterotomies were then closed with a SATNAM stapler. I then closed the mesenteric defect with 2-0 silk sutures. Hemostasis was adequate. I then irrigated with normal saline, aspirated all fluids dry. I placed the bowel back in anatomical position with the anastomosis in the right upper quadrant. I saw no evidence of distant metastatic spread in the liver or in the peritoneal surface other than the area of local invasion. I saw no other abnormalities. I closed with interrupted #1 Vicryl and antione to the skin. The patient tolerated the procedure well, sent to the recovery room in good condition. Dictated by... Rafa Workman/kane TD: 06/21/2016 01:36 JOB #: [id number] OPERATIVE REPORT Page 1 of 1 X Ganga Chavez MD X PROCEDURE OPERATIVE NOTE
--- NOTE | ~2016-06-18 | A ---
[facility] Nutrition Therapy DATE: 06/19/16 Patient: YANET RYDER Physician: DOLORES Address: [address] [place] [address] Room/Bed: [address] [place] [address], Zip: [place] [address] Admit Date: 06/18/16 Date of : 34 Height: Weight: NUTRITIONAL ASSESSMENT: REASON: 2 points malnutrition risk score re: 5 lb unintentional weight loss Admitting Dx: 81 y/o female admitted with abdominal pain and N/V PMH: Lung and cecum cancer s/p chemo/radiation, COPD, CAD, HTN, HLD, colitis, gastritis, radiation esophagitis, Meniere disease Anthropometrics: Ht: 62", Wt: 131 lbs (per patient), BMI: 24 (normal) *Current weight of 145 lbs in [place] is incorrect Labs: K+ 3.1, Glucose 68, Mg 1.4 Meds: PPI, Nacl, Kcl, MgSO4, NSIV @ 100 ml/hr, Zofran prn I/O & Bowel function: LBM 06/17, denies N/V today Skin Integrity: Dry skin, scattered bruises, alopecia scalp, no edema Estimated Nutrition Needs: Increase nutrient needs r/t cancer, weight loss Assessment: Chart reviewed, events noted. Patient with 2 prior admissions this month, most recent admission 06/10- for N/V, found to have colitis. See admitting dx and PMH as stated above- patient has lung cancer and mass in cecum- may have colon resection. This admission CT scan again confirmed colitis and mass. RD previously assessed on 05/24/16 and followed up on 05/29/16- notes reviewed. During previous admission patient stated her UBW is 150 lbs, she was 134 lbs earlier this month, current weight of 131 lbs reflects a recent loss of an additional 3 lbs although she reports a loss of 5 lbs in the past week. Total weight loss approximates ~20 lbs since October of last year (13% body weight loss in 7 months; severe). Recently PO intake has been poor due to N/V and abdominal pain associated with colitis. Past admission she was on a mechanical ground diet that was later upgraded to regular. Currently this admission she is on a regular diet and has no chewing/swallowing difficulties, denies N/V today. States she does not like regular Ensure or Ensure pudding, RD offered Ensure clear which she is gladly willing to try- will order. RD discussed adequate kcal/protein intake to maintain weight status and prevent further loss, especially pending possible colon resection- patient agreed. Ate ~50-60% of breakfast this morning with no issues, she states she knows what she can and cannot tolerate. Based on the patient's poor oral intake for the past 7 months and 13% body weight loss she qualifies for severe protein calorie malnutrition. No obvious physical indications of malnutrition observed, patient is of normal weight considering her BMI. See RD recs, will follow hospital course. [facility] Nutrition Therapy DATE: 06/19/16 Patient: YANET RYDER Physician: DOLORES Address: [address] [place] [address] Room/Bed: [address] [place] [address], Zip: [place] [address] Admit Date: 06/18/16 Date of : 34 Height: Weight: Dx: Malnutrition r/t chronic illness, colitis, cancer AEB < 75% energy needs for > 1 month, weight loss > 10% in 6 months. Intervention: HC/HP diet, Ensure Clear TID, lyte replacement Monitoring, Evaluation and Goals: 1. Adequate oral intake > 50-75% of meals/supps with minimal c/o N/V/abdominal pain. 2. Prevent further unintentional weight loss. 3. Lytes, glucose WNL. Monitor: Per protocol, criteria to determine if above goals met Recommendations: 1. Please change diet to high calorie/high protein to prevent further unintentional weight loss, also patient has increased nutrient needs related to weight loss and cancer. Appreciate staff/family to encourage adequate oral intake. May benefit from HC/HP diet education prior to discharge. 2. RD will order apple Ensure clear TID, as the patient does not like regular Ensure or Ensure pudding. 3. Based on the patient's prolonged decreased oral intake and 13% body weight loss in 7 months she qualifies for severe protein calorie malnutrition related to chronic illness/colitis/cancer. 4. Replace lytes prn (Mg/K+ low). 5. Please weigh q 3 days for monitoring purposes. RD will follow hospital course Moderate nutrition risk Respectfully, Vania Tse, RD, LD Food and Nutritional Services [facility] Nutrition Therapy DATE: 06/19/16 Patient: YANET RYDER Physician: DOLORES Address: [address] [place] [address] Room/Bed: [address] [place] [address], Zip: [place] [address] Admit Date: 06/18/16 Date of : 34 Height: Weight: cc: client file
--- NOTE | ~2016-06-18 | CO ---
Unit #: [id number] #: [id number] Patient: YANET RYDER [id number] [address] [place], [place] [address] [id number] I MR#: [id number] NAME: YANET RYDER ROOM: 202 Age: 81 Sex: F Admission Date: 06/18/2016 : 1935 Attending Physician: Madhuri Yu M.D. Primary Care Physician: Luzma Coyle M.D. Consultation Date: 06/18/2016 CONSULTATION REPORT BRIEF HISTORY The patient is an 81-year-old lady with complex history who has small cell cancer of the lung, who has been undergoing chemotherapy. Subsequent PET scan showed a mass in the cecum. She was planning on undergoing treatment for her lung cancer and then probable colon resection. She presents now with increasing abdominal pain. This has been there for at last two weeks for which she was last admitted, found to have colitis on CT scan. She has had no nausea, vomiting, no fevers or chills. PAST HISTORY 1. Hypertension. 2. Hyperlipidemia. 3. Coronary artery disease. PAST SURGERIES 1. She had a cholecystectomy. 2. Hysterectomy. 3. Appendectomy. HOME MEDICATIONS 1. Multiple vitamins. 2. Amlodipine. ALLERGIES She has an allergy to sulf and Levaquin. FAMILY HISTORY Noncontributory. SOCIAL HISTORY No smoking, no alcohol. REVIEW OF SYSTEMS No cardiopulmonary complaints at this time. Ten systems reviewed and negative. PHYSICAL EXAMINATION GENERAL: She is awake, alert and appropriate. VITAL SIGNS: Currently afebrile. HEENT: Unremarkable. NECK: Supple. No JVD. Trachea midline. LUNGS: Clear to auscultation. Bilateral breath sounds symmetric. CARDIOVASCULAR: Regular rate and rhythm. ABDOMEN: Soft. It is mildly tender but no rebound, no masses, no Unit #: [id number] #: [id number] Patient: YANET RYDER hernias. EXTREMITIES: No clubbing, cyanosis or edema. DIAGNOSTIC STUDIES LABORATORY: Labs show white count 3.6, hemoglobin 9.4. Chemistries are normal. Bilirubin is 0.8. ASSESSMENT AND PLAN Abdominal pain: Not acute abdomen. Will plan for a repeat CT scan of the abdomen. Will discuss with oncology and consider proceeding with her colon resection. Dictated by... Rafa Workman TD: 06/19/2016 08:58 JOB #: [id number] CONSULTATION REPORT Page 1 of 1 X Ganga Chavez MD X CONSULTATION REPORT
--- NOTE | ~2016-06-18 | CT2 ---
[facility] A Service of [facility] RADIOLOGY TEXT RESULTS PATIENT: YANET RYDER LOCATION: C2A : 34 UNIT #: [id number] AGE: [address]: Rosalia Koo MD SEX: F ORDER DR: [id number] [facility] [address] [facility]. [place], [place] [address] [id number] MR#: [id number] Acc #: [id number] NAME: YANET RYDER : 1935 SEX: F STUDY DATE/TIME: 06/18/2016 16:43 UNIT: C2A ROOM: 202 STUDY DESCRIPTION: CT Abd and Pelv W Cont Attending Physician: Rosalia Koo M.D. Ordering Physician: Rosalia Koo M.D. Primary Care Physician: Luzma Coyle M.D. MEDICAL IMAGING REPORT This report is preliminary unless electronic signature is present EXAM CT abdomen and pelvis with contrast INDICATIONS Generalized abdominal pain and vomiting for the past 2 weeks. PROCEDURE Contrast-enhanced CT of the abdomen and pelvis, 100 mL of Isovue-370. This CT exam was performed with one or more of the following radiation dose reduction techniques: Automatic exposure control, adjustment of mA and/or kV according to patient size, and iterative reconstruction. COMPARISON None FINDINGS Scarring left lung base. ABDOMEN WITH CONTRAST: Liver, spleen, kidneys, pancreas show no acute abnormality. Previous cholecystectomy. Fat and soft tissue attenuation lesion in the left adrenal gland measures 3.1 cm. It has not significantly changed and in keeping with a benign adrenal myelolipoma. Bowel loops are nondilated. There is abnormal thickening in the cecum. This extends for a length of approximately 6.1 cm. There is a area along the posteromedial margin of the cecum measuring 2.6 cm that appears to be extraluminal. No evidence for obstruction. Appearance of the cecum is very similar to the previous study. There is an 11-mm node in the pericecal mesentery stable from the prior and nonspecific. Stable atherosclerotic calcification abdominal aorta with infrarenal abdominal aortic aneurysmal dilation up to 3.2 cm. [facility] A Service of [facility] RADIOLOGY TEXT RESULTS PATIENT: YANET RYDER LOCATION: C2A 202-01 : 34 UNIT #: [id number] AGE: [address]: Rosalia Koo MD SEX: F ORDER DR: PELVIS WITH CONTRAST: Previous hysterectomy. No pelvic mass or fluid. Severe arthrosis in the left hip, no aggressive appearing bone lesion. IMPRESSION 1. Persistent thickening in the cecum as detailed above. It appears very similar to the previous study. Correlate with any interval treatment. Lack of response favors malignancy. 2. Nodular component along the posteromedial margin of the cecum could represent focal area of trans-serosal extension. 3. Mildly prominent lymph node in the pericecal mesentery is stable but nonspecific. 4. Otherwise, no evidence for metastatic disease in the abdomen or pelvis. 5. If there has not been interval therapy, considerations for the cecal findings include both malignancy and infectious or inflammatory change. Dictated by... Jose Manuel Ferrer M.D. THIS IS AN ELECTRONICALLY VERIFIED REPORT Jose Manuel Ferrer M.D. at 06/19/2016 7:35 AM EED/allegra TD: 06/19/2016 04:10 JOB #: [id number] MEDICAL IMAGING REPORT Page 1 of 1 COPY
--- NOTE | ~2016-06-18 | CT57 ---
[facility] A Service of [facility] RADIOLOGY TEXT RESULTS PATIENT: YANET RYDER LOCATION: [facility] 575-01 : 34 UNIT #: [id number] AGE: [address]: Madhuri Yu MD SEX: F ORDER DR: [id number] [facility] [address] [place], [place] [address] [id number] I MR#: [id number] Acc #: [id number] NAME: YANET RYDER : 1935 SEX: F STUDY DATE/TIME: 06/18/2016 19:16 UNIT: C2A ROOM: 202 STUDY DESCRIPTION: CT Chest Wo Cont Attending Physician: Madhuri Yu M.D. Ordering Physician: Maurilio Rodriguez M.D. Primary Care Physician: Luzma Coyle M.D. MEDICAL IMAGING REPORT This report is preliminary unless electronic signature is present EXAM Chest CT without contrast 06/19 10/08 the INDICATIONS 81-year-old female with history of colon cancer and lung cancer. Observation for suspected malignant neoplasm. Active malignancy. Abdominal pain and vomiting for [address] of the chest was performed. Correlation is made with PET CT 01/17/2016. This CT exam was performed with one or more of the following radiation dose reduction techniques: automatic exposure control, adjustment of mA and/or kV according to patient size, and iterative reconstruction. FINDINGS CT chest: Exam degraded by noncontrast technique, particularly in the setting of known malignancy. Lungs demonstrate emphysematous change. Previously documented lower lobe nodule on the left has decreased in size now about 12 x 7 mm previously 20 x 16 mm. There is some probable chronic scarring or round atelectasis in the left lung base. There is some mild pleural thickening in the left lower lobe/invagination of fat between the eighth and ninth ribs on the left. This appears more prominent than on the prior study but there are no new aggressive features. Attention on followup is recommended. There is old healed granulomatous disease. Included thyroid unremarkable. No pericardial effusion. No axillary adenopathy. Aorta demonstrates advanced atherosclerotic change. 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 Included upper abdomen demonstrates granulomatous change of STS. [facility] A Service of [facility] RADIOLOGY TEXT RESULTS PATIENT: YANET RYDER LOCATION: [facility] 575-01 : 34 UNIT #: [id number] AGE: [address]: Madhuri Yu MD SEX: F ORDER DR: the spleen and postop changes of cholecystectomy. Pancreas atrophic. There is a fat and soft tissue mass within the left adrenal gland measuring up to 2.7 cm. This is unchanged in size dimensions. Based on the fact it contains macroscopic fat this is most characteristic of a benign myelolipoma. It does have a significant soft tissue component but nevertheless is favored to be benign. It can be followed on subsequent studies to reassess stability. No new suspicious bone lesion. Degenerative changes in the thoracic spine. The patient is status post median sternotomy. Previously demonstrated axillary node on the left has no correlate on today's study. Previously demonstrated hilar adenopathy on the prior study also not clearly demonstrated, perhaps partially obscured by noncontrast technique. IMPRESSION 1. Exam degraded by lack of intravenous contrast. 2. Interval decrease in size of the lower lobe mass. It now measures about 7 x 12 mm. 3. Previously demonstrated left axillary lymph node and hilar adenopathy not clearly demonstrated on today's examination. 4. Benign myelolipoma in the left adrenal gland. See discussion above. Atherosclerotic disease and aneurysmal dilatation of the aorta. 5. Status post cholecystectomy and median sternotomy. Dictated by... Marc Kelly M.D. THIS IS AN ELECTRONICALLY VERIFIED REPORT Marc Kelly M.D. at 06/19/2016 10:01 PM Simone TD: 06/19/2016 08:56 JOB #: [id number] MEDICAL IMAGING REPORT Page 1 of 1 COPY
--- NOTE | ~2016-06-18 | HP ---
Unit #: [id number] #: [id number] Patient: YANET RYDER [id number] [address] [address] [id number] I MR#: [id number] NAME: YANET RYDER ROOM: 202 Age: 81 Sex: F Admission Date: 06/18/2016 : 1935 Attending Physician: Rosalia Koo M.D. Primary Care Physician: Luzma Coyle M.D. HISTORY AND PHYSICAL ADDENDUM ADDITIONAL INFORMATION IN HER PHYSICAL EXAM Temperature 97.8, pulse 75, respirations 20, blood pressure 135/58. Oxygen saturation was 95% on room air. Dictated by Rafa Mtz/liliana TD: 06/19/2016 06:13 JOB #: [id number] HISTORY AND PHYSICAL Page 1 of 1 X Rosalia Koo MD HISTORY AND PHYSICAL
--- NOTE | ~2016-06-18 | CO ---
Unit #: [id number] #: [id number] Patient: MADISON SMITH [id number] [address] [address] [id number] I MR#: [id number] NAME: MADISON SMITH ROOM: 448 Age: 81 Sex: F Admission Date: 06/18/2016 : 1935 Attending Physician: Madhuri Yu M.D. Primary Care Physician: Luzma Coyle M.D. Requesting Physician: Rosalia Koo M.D. Consultation Date: 06/19/2016 CONSULTATION REPORT CARDIOLOGY CONSULTATION REASON FOR CONSULTATION Cecal and small cell lung cancer. HISTORY OF PRESENT ILLNESS Ms. Madison Smith was sent over from our office on 06/18/2016 complaining of severe abdominal pain, generalized but primarily in the right lower quadrant. Today she tells me that her abdominal pain is slightly better after starting pain medication, but her appetite is poor and she feels tired. Following admission, she has had a CT scan of her abdomen and pelvis as well as a CT scan of the chest. This is the third admission in as many weeks for recurrent abdominal pain. PAST HISTORY 1. History of small cell lung cancer, limited stage with chemo and radiation therapy completed 05/18/2016 complicated by radiation esophagitis. 2. Admission 06/10 through 06/11 for acute colitis. 3. 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 Morel with the findings of colon cancer. 4. Coronary artery disease with a history of bypass grafting. 5. Peripheral arterial disease with high-grade stenosis. 6. Aortic aneurysm. 7. Hypertension. 8. Hyperlipidemia. 9. COPD. 10. Meniere disease. PAST SURGICAL HISTORY Includes coronary artery bypass grafting, coronary stent placement, hysterectomy, cholecystectomy, appendectomy. FAMILY HISTORY Coronary artery disease but no malignancy in immediate family. SOCIAL HISTORY She quit smoking at time of diagnosis of small cell lung cancer last year. and lives with her . ALLERGIES Sulfa and Levaquin Unit #: [id number] #: [id number] Patient: MADISON SMITH REVIEW OF SYSTEMS Fourteen-point review of systems taken. CONSTITUTIONAL: Fatigue, weakness, decreased appetite. EYES: Negative. EARS/NOSE/MOUTH/THROAT: Negative. CARDIOVASCULAR: No chest pain or palpitations. RESPIRATORY: Negative. GASTROINTESTINAL: Generalized pain primarily in the right lower quadrant as discussed. She has been having on and off diarrhea, which she attributes to antibiotics given for her treatment of colitis. NEUROLOGIC: Negative. ALLERGIC/LYMPHATIC: Negative. SKIN: Negative. PSYCHIATRIC: Negative. MUSCULOSKELETAL: Negative. PHYSICAL EXAMINATION VITAL SIGNS: Performance status is 1. Temperature is 98, pulse rate 81, respiratory rate is 18, blood pressure 133/55, O2 saturation 97% on room air. GENERAL APPEARANCE: She is awake, alert, oriented times three. HEENT EXAMINATION: Shows pupils equal, react well to light. Mild pallor, no icterus. Mucous membranes are slightly dry. NECK: Without adenopathy, JVD or thyromegaly. CARDIOVASCULAR: First and second heart sounds are heard and are regular without murmurs, gallops or rubs. LUNGS: Chest expansion is symmetric. Bilateral equal air entry with normal breath sounds. ABDOMEN: Abdomen is soft. Slight tenderness in the right lower quadrant. Bowel sounds active. EXTREMITIES: Warm with good pulses. No edema, cyanosis, clubbing. NEUROLOGIC: She is awake, alert, oriented times 3 without any focal findings. SKIN: Negative. ALLERGIC/LYMPHATIC: Negative. PSYCHIATRIC: Normal affect. DIAGNOSTIC STUDIES LABORATORY: CBC with white count of 5, hemoglobin 11.2, platelet count 249,000. Troponin is 0.05. Complete metabolic panel shows a BUN of 14, creatinine 1, eGFR 52.4, ALT 8, AST 14, alkaline phosphatase 62, bilirubin 0.5, total protein 7.1, albumin 3.7, lipase 12, amylase 11. IMAGING: CT scan of the chest was personally reviewed by me and shows resolution of her previously noted left axillary lymph node as well as hilar and mediastinal lymph nodes. Her lung mass is also significantly smaller in size. CT scan of the abdomen and pelvis reveals an 11-mm node in the pericecal mesentery. Infrarenal abdominal aortic aneurysm. There is persistent thickening of the cecum area of 6.1 cm and an area along the posteromedial margin measuring 2.6 which appears extraluminal without any evidence of bowel obstruction. ASSESSMENT AND PLAN Ms. Madison Smith is 81 years old with a history of severe chronic obstructive pulmonary disease, coronary artery disease, hypertension and Unit #: [id number] #: [id number] Patient: MADISON SMITH small cell lung cancer limited stage who has completed treatment, with CT scans done yesterday showing significant improvement. She also has cecal cancer diagnosed at time of her original diagnosis, treatment of which has been postponed to completion of chemoradiation therapy, which was done with the last treatment on 05/18/2016. I called Dr. Ganga Chavez of [facility], who saw her today and discussed the situation with him. After discussion, we decided that proceeding ahead with surgery during this hospitalization would be the most appropriate given her multiple recent admissions, abdominal pain and the need for surgical treatment for her cecal cancer. I discussed with Ms. Smith the recommended cardiology and pulmonary evaluations given her history of coronary artery disease and COPD in anticipation of her prior surgery. Thank you for allowing me to participate in her care and I will follow with you. Dictated by... Rafa Duarte/allegra TD: 06/21/2016 01:29 JOB #: [id number] CONSULTATION REPORT Page 1 of 1 X Maurilio Rodriguez MD X CONSULTATION REPORT
--- NOTE | ~2016-06-18 | CO ---
Unit #: [id number] #: [id number] Patient: YANET RYDER [id number] [id number] [facility]. [place], [place] [address] [id number] I MR#: [id number] NAME: YANET RYDER ROOM: 448 Age: 81 Sex: F Admission Date: 06/18/2016 : 1935 Attending Physician: Madhuri Yu M.D. Primary Care Physician: Luzma Coyle M.D. Consultation Date: 06/19/2016 CONSULTATION REPORT REASON FOR CONSULT Preoperative clearance. HISTORY OF PRESENT ILLNESS This is an 81-year-old white female previously known to our group with a past medical history of coronary artery disease. The patient had a coronary artery bypass grafting with left internal mammary artery to the LAD in 1999. She underwent a PCI and stent placement in the left circumflex in 2010. Her last cardiac catheterization was on 02/21/2015 which revealed a normal left circumflex. The obtuse marginal had mild plaque. The LAD distal to the first diagonal was occluded. The left internal mammary artery to the mid LAD was patent. Left ventricular ejection fraction was 55%. Additional past medical history includes hypertension, hyperlipidemia, COPD and aortic dilatation for imaging in November 2014. 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 Since being seen by Cardiology, she was diagnosed with small-cell lung cancer and underwent multiple treatments with chemotherapy and radiation. She was recently diagnosed with cecal cancer in February 2016. She presented to the emergency department with complaints of abdominal pain. The pain has been present for several days but recently became worse. It was located in a generalized area. There are no reports of fever or chills. She did have one episode of vomiting and she has had some occasional diarrhea but no bleeding. She admits to a dry cough. There are no reports of fever. She denies any dizziness, palpitations or chest pain. She has had some shortness of breath and edema at the end of the day which improves with elevation. She was admitted in the emergency department with abdominal pain. A CT of the abdomen and pelvis was completed as well as an amylase and lipase level. She was given pain medicine and started on IV fluids. [facility] and Oncology were consulted. The patient is scheduled to undergo a colectomy due to cecal mass. Cardiology was consulted for preoperative clearance. PAST MEDICAL HISTORY 1. Status post cardiac catheterization, February 21, 2015, which left main normal. Left circumflex normal. Obtuse marginal with mild plaque. LAD distal reverse diagonal occluded. LANDRY to the mid LAD patent. Mid right coronary artery 20%. PDA and PLV normal. Ejection fraction 55%. Medical management. 2. 2D echocardiogram, February 20, 2015, revealed a left ventricle ejection fraction of 50 to 55%, impaired LV relaxation, mild mitral Unit #: [id number] #: [id number] Patient: YANET RYDER regurgitation, trace tricuspid regurgitation, right ventricular systolic pressure normal. 3. PCI and stent to the left circumflex in 2010. 4. Coronary artery bypass grafting times one with LANDRY to the LAD in 1999. 5. Hypertension. 6. Hyperlipidemia. 7. COPD. 8. Aortic dilatation. Last (1) , November 2014, revealed ascending thoracic aorta 3.8 cm, descending aorta 2.7 cm, distal thoracic aorta 3.2 cm. 9. 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 10. Small-cell lung cancer status post chemotherapy and radiation. 11. Cecal cancer diagnosed in February 2013. 12. Reformed tobacco abuse. PAST SURGICAL HISTORY 1. Cardiac catheterization as noted above. 2. Coronary artery bypass grafting. 3. Hysterectomy. 4. Cholecystectomy. 5. Appendectomy. SOCIAL HISTORY The patient lives in a private residence. She does light cleaning and cooking but does not exercise. She is a reformed smoker. There are no reports of alcohol or illicit drug use. FAMILY HISTORY Congestive heart failure in her mother. ALLERGIES Sulfa and Levaquin. HOME MEDICATION 1. Amlodipine 10 mg p.o. daily. 2. Protonix 40 mg p.o. daily. 3. Potassium chloride 10 mEq p.o. daily. REVIEW OF SYSTEMS A 10-point review of systems is negative except for details noted above in HPI. PHYSICAL EXAMINATION CONSTITUTIONAL: This is an 81-year-old white female in no acute distress. VITAL SIGNS: Temperature 98. Pulse 81. Blood pressure 133/55. SKIN: Warm and dry. NECK: Supple. No jugular vein distension. No hepatojugular reflux. Normal carotid upstrokes. No carotid bruits auscultated. HEART: S1, S2. Regular rate and rhythm. No murmurs, rubs or gallops. LUNGS: Bilateral breath sounds have good air entry throughout all lung wiley. Respirations even and unlabored. No rales, rhonchi or wheezes. ABDOMEN: Soft with generalized tenderness. Positive bowel sounds auscultated x4 quadrants. No ascites noted. EXTREMITIES: Bilateral extremities have no pretibial pitting edema. DP and PT pulses 2+. Capillary refill less than three seconds. DIAGNOSTIC STUDIES Unit #: [id number] #: [id number] Patient: YANET RYDER LABORATORY: WBC count 3.8, hemoglobin 8.9, hematocrit 27.1, platelets 204. Sodium 141, potassium 3.1, chloride 110, CO2 22, BUN 10, creatinine (2) , glucose 68, calcium 7.8, magnesium 1.4, total protein 5.5, albumin 3.0, AST 12, ALT 7, alkaline phosphatase 51. Troponin 0.04 and 0.04. IMAGING: CT of the abdomen and pelvis with contrast reveals persistent thickening in the cecum as detailed in report very similar to previous study, nodular component along the posterior medial margin of the cecum could represent a focal area of trans-serosal extension. Mildly prominent lymph node in the pericecal mesentery, stable but nonspecific. CARDIOVASCULAR: EKG reveals sinus rhythm with a ventricular rate of 78 beats per minute. No acute ST or T wave changes. IMPRESSION 1. Stable angina. 2. No evidence of congestive heart failure. 3. Cecal carcinoma with need for surgical resection. 4. History of lung cancer status post chemotherapy and radiation. 5. Coronary artery disease with history of PCI and stent in the left circumflex in 2010 and coronary artery bypass grafting in 1999. 6. Left ventricle ejection fraction 50 to 55%. 7. Hypertension. 8. Hyperlipidemia. 9. COPD. PLAN 1. The patient presented to the hospital with complaints of abdominal pain. She was admitted for further evaluation. 2. Cardiology was consulted for preoperative clearance. 3. There are no complaints of chest pain or evidence of congestive heart failure or arrhythmia. 4. The patient would be a low to moderate risk candidate for surgery under general anesthesia. Dictated by... Sandra Carr APRN for Rafa Tee TD: 06/21/2016 12:10 JOB #: [id number] CONSULTATION REPORT Page 1 of 1 X X CONSULTATION REPORT
--- NOTE | ~2016-06-18 | MAL ---
[facility] Nutrition Therapy DATE: 06/19/16 Patient: YANET RYDER Physician: DOLORES Address: [address] [place] [address] Room/Bed: [address] [place] [address], Zip: [place] [address] Admit Date: 06/18/16 Date of : [birth year] Height: Weight: PHYSICAL MALNUTRITION ASSESSMENT Energy Intake, Chronic Illness Moderately reduced: <75% needs for >/=1 month Energy Intake Comment: Prolonged decreased oral intake r/t colitis/cancer/N/V/abdominal pain x 7 months Weight Loss, Chronic Illness Severe: >10% past 6 months Weight Loss, Comment: Patient hast lost a total of 13% body weight in the past 7 months Physical Findings Comment: No obvious physical signs of malnutrition, patient is still of normal weight based on BMI Dietitian Malnutrition Assessment Score: Malnutrition Survey Results: Malnutrition identified Malnutrition Etiology Summary: Chronic illness severe Malnutrition Survey Comment: See full RD assessment with recommendations dated 06/19/16 Respectfully, Vania Tse RD, [facility] [facility] cc: client file
[~2016-06-18 13:45] MED LIST changes: +AUGMENTIN875 M1 PO
[2016-06-18] MEDS ORDERED: PROTONIX PO (13:54)
[2016-06-18 14:52] LABS: HEMATOCRIT 33.8 % (35.0-45.0); HEMOGLOBIN 11.2 gm/dL (12.0-16.0); MEAN CELL VOLUME 93.6 FL (83-96); MEAN CORPUSCULAR HEMOGLOBIN 31.1 PG (28-34); MEAN CORPUSCULAR HGB CONC 33.2 g/dL (30-36); MEAN PLATELET VOLUME 7.9 FL (6.5-11.5); RED BLOOD COUNT 3.61 X10e (3.90-5.30); RED CELL DISTRIBUTION WIDTH 18.4 % (11.0-15.5)
[2016-06-18] MEDS ORDERED: POTASSIUM CL 225 ME1 PO (15:11)
[2016-06-18 15:23] LABS: ALBUMIN SERUM 3.7 g/dL (3.5-5.0); BILIRUBIN,TOTAL 0.5 mg/dL (0.2-2.0); CALCIUM SERUM 9.2 mg/dL (8.4-10.2); GLOM FILT RATE Estimated 52.4 mL/min (>60); POTASSIUM 3.9 mmol/L (3.5-5.1); PROTEIN TOTAL SERUM 7.1 g/dL (6.0-8.3)
[2016-06-18 18:23] LABS: %MB 2.1 % (0.0-4.0); MB 2.3 ng/ml
[2016-06-18 21:34] LABS: CK TOTAL 51 IU/L (26-140)
[2016-06-19 03:55] LABS: CK TOTAL 57 IU/L (26-140)
[2016-06-19 07:07] LABS: HEMATOCRIT 27.1 % (35.0-45.0); MEAN CELL VOLUME 94.8 FL (83-96); MEAN CORPUSCULAR HEMOGLOBIN 31.1 PG (28-34); MEAN CORPUSCULAR HGB CONC 32.7 g/dL (30-36); MEAN PLATELET VOLUME 8.2 FL (6.5-11.5); RED BLOOD COUNT 2.85 X10e (3.90-5.30); RED CELL DISTRIBUTION WIDTH 18.8 % (11.0-15.5); WHITE BLOOD COUNT 3.8 X10e3 (4.0-10.5)
[2016-06-19 07:13] LABS: HEMOGLOBIN 8.9 gm/dL (12.0-16.0)
[2016-06-19 07:54] LABS: ALKALINE PHOSPHATASE 51 U/L (32-92); ALT (SGPT) 7 U/L (10-40); AMYLASE 11 U/L (0-46); AST (SGOT) 12 U/L (10-42); BLOOD UREA NITROGEN 10 mg/dL (9-23); BUN/CREATININE RATIO 16.66; CALCIUM SERUM 7.8 mg/dL (8.4-10.2); CARBON DIOXIDE 22 mmol/L (22-31); CHLORIDE 110 mmol/L (100-111); CREATININE SERUM 0.6 mg/dL (0.6-1.4); GLOM FILT RATE Estimated 84.9 mL/min (>60); GLUCOSE FASTING 68 mg/dL (70-110); LIPASE 11 U/L (22-51); POTASSIUM 3.1 mmol/L (3.5-5.1); PROTEIN TOTAL SERUM 5.5 g/dL (6.0-8.3); SODIUM 141 mmol/L (135-145)
[2016-06-19 08:14] LABS: BILIRUBIN,TOTAL <0.1 mg/dL (0.2-2.0)
[2016-06-20 05:41] LABS: HEMATOCRIT 30.4 % (35.0-45.0); HEMOGLOBIN 10.3 gm/dL (12.0-16.0); MEAN CELL VOLUME 92.9 FL (83-96); MEAN CORPUSCULAR HEMOGLOBIN 31.3 PG (28-34); MEAN CORPUSCULAR HGB CONC 33.7 g/dL (30-36); MEAN PLATELET VOLUME 7.9 FL (6.5-11.5); RED BLOOD COUNT 3.28 X10e (3.90-5.30); RED CELL DISTRIBUTION WIDTH 18.8 % (11.0-15.5); WHITE BLOOD COUNT 4.5 X10e3 (4.0-10.5)
[2016-06-20 06:36] LABS: CALCIUM SERUM 8.8 mg/dL (8.4-10.2); CREATININE SERUM 0.8 mg/dL (0.6-1.4); GLOM FILT RATE Estimated 68.7 mL/min (>60)
[2016-06-21 03:44] LABS: BASOPHIL% 0.5 % (0-2.5); EOSINOPHIL% 0.2 % (0.0-7.0); HEMATOCRIT 30.2 % (35.0-45.0); LYMPHOCYTE# 0.5 X10e3 (1.0-3.5); LYMPHOCYTE% 6.4 % (17.0-45.0); MEAN CORPUSCULAR HEMOGLOBIN 31.2 PG (28-34); MEAN CORPUSCULAR HGB CONC 33.1 g/dL (30-36); MEAN PLATELET VOLUME 8.4 FL (6.5-11.5); MONOCYTE# 0.8 X10e3 (0-1.0); MONOCYTE% 10.2 % (3.0-12.0); NEUTROPHIL# 6.8 X10e3 (1.5-7.1); NEUTROPHIL% 82.7 % (40-75); PLATELET COUNT 246 X10e3 (140-420); RED BLOOD COUNT 3.22 X10e (3.90-5.30); RED CELL DISTRIBUTION WIDTH 18.6 % (11.0-15.5)
[2016-06-21 03:53] LABS: DIFF IND NO; WHITE BLOOD COUNT 8.2 X10e3 (4.0-10.5)
[2016-06-21 04:19] LABS: CALCIUM SERUM 8.6 mg/dL (8.4-10.2); CREATININE SERUM 1.2 mg/dL (0.6-1.4); GLOM FILT RATE Estimated 42.1 mL/min (>60); MAGNESIUM 1.7 mg/dL (1.6-3.0); POTASSIUM 4.2 mmol/L (3.5-5.1)
[2016-06-22 05:37] LABS: BASOPHIL% 0.3 % (0-2.5); EOSINOPHIL# 0.1 X10e3 (0-0.7); EOSINOPHIL% 1.9 % (0.0-7.0); HEMATOCRIT 26.4 % (35.0-45.0); HEMOGLOBIN 8.7 gm/dL (12.0-16.0); LYMPHOCYTE# 0.6 X10e3 (1.0-3.5); LYMPHOCYTE% 7.6 % (17.0-45.0); MEAN CORPUSCULAR HEMOGLOBIN 31.1 PG (28-34); MEAN CORPUSCULAR HGB CONC 33.1 g/dL (30-36); NEUTROPHIL# 5.9 X10e3 (1.5-7.1); NEUTROPHIL% 77.2 % (40-75); PLATELET COUNT 200 X10e3 (140-420); RED BLOOD COUNT 2.81 X10e (3.90-5.30); RED CELL DISTRIBUTION WIDTH 18.8 % (11.0-15.5); WHITE BLOOD COUNT 7.7 X10e3 (4.0-10.5)
[2016-06-22 05:42] LABS: DIFF IND NO
[2016-06-22 06:09] LABS: BUN/CREATININE RATIO 5.55; CALCIUM SERUM 8.2 mg/dL (8.4-10.2); CREATININE SERUM 0.9 mg/dL (0.6-1.4); GLOM FILT RATE Estimated 59.6 mL/min (>60); MAGNESIUM 1.8 mg/dL (1.6-3.0); POTASSIUM 3.6 mmol/L (3.5-5.1)
[2016-06-23 04:31] LABS: BASOPHIL% 0.8 % (0-2.5); EOSINOPHIL# 0.2 X10e3 (0-0.7); EOSINOPHIL% 4.4 % (0.0-7.0); HEMATOCRIT 23.4 % (35.0-45.0); HEMOGLOBIN 7.8 gm/dL (12.0-16.0); LYMPHOCYTE# 0.5 X10e3 (1.0-3.5); LYMPHOCYTE% 9.5 % (17.0-45.0); MEAN CELL VOLUME 94.8 FL (83-96); MEAN CORPUSCULAR HEMOGLOBIN 31.4 PG (28-34); MEAN CORPUSCULAR HGB CONC 33.2 g/dL (30-36); MEAN PLATELET VOLUME 8.3 FL (6.5-11.5); MONOCYTE# 0.7 X10e3 (0-1.0); MONOCYTE% 11.9 % (3.0-12.0); NEUTROPHIL# 4.1 X10e3 (1.5-7.1); NEUTROPHIL% 73.4 % (40-75); PLATELET COUNT 168 X10e3 (140-420); RED BLOOD COUNT 2.47 X10e (3.90-5.30); RED CELL DISTRIBUTION WIDTH 18.4 % (11.0-15.5); WHITE BLOOD COUNT 5.6 X10e3 (4.0-10.5)
[2016-06-23 04:32] LABS: DIFF IND YES
[2016-06-23 04:36] LABS: BUN/CREATININE RATIO 6.25; CALCIUM SERUM 8.3 mg/dL (8.4-10.2); CREATININE SERUM 0.8 mg/dL (0.6-1.4); GLOM FILT RATE Estimated 68.7 mL/min (>60); MAGNESIUM 1.9 mg/dL (1.6-3.0); POTASSIUM 3.5 mmol/L (3.5-5.1)
[2016-06-23 05:07] LABS: PLATELET ESTIMATE NORMAL (NORMAL); POLYCHROMASIA SL
[2016-06-23 14:29] LABS: HEMATOCRIT 25.5 % (35.0-45.0); HEMOGLOBIN 8.4 gm/dL (12.0-16.0)
[2016-06-24 03:17] LABS: HEMOGLOBIN 8.2 gm/dL (12.0-16.0); MEAN CELL VOLUME 94.5 FL (83-96); MEAN CORPUSCULAR HGB CONC 32.8 g/dL (30-36); MEAN PLATELET VOLUME 8.5 FL (6.5-11.5); RED BLOOD COUNT 2.64 X10e (3.90-5.30); RED CELL DISTRIBUTION WIDTH 18.6 % (11.0-15.5); WHITE BLOOD COUNT 5.9 X10e3 (4.0-10.5)
[2016-06-24 03:47] LABS: BUN/CREATININE RATIO 6.66; CALCIUM SERUM 8.4 mg/dL (8.4-10.2); CREATININE SERUM 0.9 mg/dL (0.6-1.4); GLOM FILT RATE Estimated 59.6 mL/min (>60); POTASSIUM 3.4 mmol/L (3.5-5.1)
[2016-06-24] MEDS ORDERED: TYLENOL325 M1 PO (11:44)
[2016-06-24] MEDS ORDERED: DOCUSATE SODIU100 MG PO (11:48)
[2016-06-24] MEDS ORDERED: PROTONIX PO (11:49)
[2016-06-24] MEDS ORDERED: HYDROCODON-ACE1 EAC9 PO (11:51)
== END 2016-06-24 12:42 | disposition home health service (06) | DRG 330 ==
LOC: C2A 13:45 → C5C 06-19 19:00 → C4B 06-20 16:22 → C4C 06-23 13:40
PROVIDERS: Family Medicine; Internal Medicine; Surgery
PROC: 0DTF0ZZ Resection of Right Large Intestine, Open Approach (ICD-10-PCS; principal; 2016-06-20 11:00)
DX: C18.0 Malignant neoplasm of cecum (principal); C34.90 Malignant neoplasm of unspecified part of unspecified bronchus or lung; N17.9 Acute kidney failure, unspecified; J44.9 Chronic obstructive pulmonary disease, unspecified; Z95.1 Presence of aortocoronary bypass graft; I10 Essential (primary) hypertension; D72.819 Decreased white blood cell count, unspecified; D62 Acute posthemorrhagic anemia; E78.5 Hyperlipidemia, unspecified; Z90.710 Acquired absence of both cervix and uterus; Z90.49 Acquired absence of other specified parts of digestive tract; I70.208 Unspecified atherosclerosis of native arteries of extremities, other extremity; Z88.2 Allergy status to sulfonamides; Z87.891 Personal history of nicotine dependence; I25.119 Atherosclerotic heart disease of native coronary artery with unspecified angina pectoris; I71.4 Abdominal aortic aneurysm, without rupture; R09.02 Hypoxemia
CPT/HCPCS: 71250; 74177; 80048; 80053; 82150; 82550; 82553; 83690; 83735; 84132; 84484; 85014; 85018; 85025; 85027; 88309; 88341; 88342; 93005; 94640; 94760; 97161; 97165; G8978-GP; G8979-GP; G8980-GP; G8987-GO; G8988-GO; G8989-GO; J0131; J0330; J1170; J1644; J1885; J2270; J2370; J2405; J2550; J2710; J2916; J3010; J3475; Q9967

== ENCOUNTER → 2016-09-07 | Outpatient (CLI) | payer OTHER ==
[~2016-09-07] MED LIST changes: +DOCUSATE SODIU100 MG PO; +HYDROCODON-ACE1 EAC9 PO; +POTASSIUM CL 225 ME1 PO; +TYLENOL325 M1 PO
--- NOTE | ~2016-09-07 | CT2 ---
[facility] A Service of [facility] & [facility] RADIOLOGY TEXT RESULTS PATIENT: YANET RYDER LOCATION: [facility] : 34 UNIT #: [id number] AGE: [address]: Maurilio Rodriguez MD SEX: F ORDER DR: [id number] [facility]. [place], [place] [address] [id number] O MR#: [id number] Acc #: [id number] NAME: YANET RYDER : 1935 SEX: F STUDY DATE/TIME: 09/07/2016 9:56 UNIT: CCAT ROOM: STUDY DESCRIPTION: CT Abd and Pelv W Cont Attending Physician: Maurilio Rodriguez M.D. Ordering Physician: Maurilio Rodriguez M.D. Primary Care Physician: Luzma Coyle M.D. MEDICAL IMAGING REPORT This report is preliminary unless electronic signature is present EXAMINATION CT abdomen and pelvis with contrast. DATE 09/07/2016 HISTORY 81-year-old female, lung cancer with history of partial left lung resection. Last radiation therapy and chemotherapy treatments April 2016. Observation for metastatic disease. Restaging. COMPARISON CT abdomen and pelvis with contrast, 06/18/2016. PROCEDURE 5 mm axial images through the abdomen and pelvis after intravenous and enteric contrast administration. Sagittal and coronal reformatted images were obtained. This CT exam was performed with one or more of the following radiation dose reduction techniques: automatic exposure control, adjustment of mA and/or kV according to patient size, and iterative reconstruction. FINDINGS The abnormally thickened cecum or proximal ascending colon described on the previous examination has been surgically resected, and there are signs of presumed ileocolic anastomoses in the right upper quadrant. There is ill-defined thickening and reticulation in the right lower quadrant mesenteric fat measuring 2.0 x 2.5 cm, favored to represent an area of postsurgical fat necrosis. Additionally, there is some ill-defined stranding in the right mid abdominal omentum, may represent postsurgical inflammation or focal omental infarct, measuring nearly 3.7 cm craniocaudally. [facility] A Service of [facility] & [facility] RADIOLOGY TEXT RESULTS PATIENT: YANET RYDER LOCATION: [facility] : 34 UNIT #: [id number] AGE: [address]: Maurilio Rodriguez MD SEX: F ORDER DR: No suspicious liver lesions. Spleen, right adrenal normal. Benign left adrenal myelolipoma, unchanged. Bilateral renal cortical scarring. Incidental note made of 8 mm and 9 mm low-density left renal lesions, statistically favored to represent cysts. Small midline fat containing hernia near the level of the umbilicus is a new finding since 06/18/2016. PELVIS FINDINGS: Sigmoid diverticulosis without diverticulitis. Urinary bladder is decompressed. Presumed hysterectomy. No pelvic adenopathy or free fluid. Severe degenerative changes of the left hip with flattening of the humeral head and features of avascular necrosis. Severe facet arthropathy at L4-5 and L5-S1. No suspicious osseous lesions. Aneurysmal dilation of the aorta near the level of the diaphragmatic hiatus with irregular atheromatous plaquing. The aorta measures 3.5 cm at this level, is not thought to be a significant change. There is fusiform aneurysmal dilation of the infrarenal abdominal aorta up to 3.2 cm, unchanged. IMPRESSION 1. Interval ascending colectomy. Ill-defined rounded fat reticulation within the right lower quadrant mesentery favored to represent postsurgical fat necrosis. Continued attention at surveillance imaging recommended. Additional area of presumed fat necrosis versus focal omental infarct in the right mid abdomen. 2. There is a new midline ventral hernia near the level of the umbilicus containing only fat. 3. Stable distal descending thoracic aortic aneurysm and infrarenal abdominal aortic aneurysm. 4. Stable left adrenal myelolipoma. 5. Uncomplicated sigmoid diverticulosis. 6. Hysterectomy. 7. Severe lower lumbar facet arthropathy with suspected severe canal stenosis at L4-5, severe left hip degenerative change. 8. Bilateral renal cortical scarring and small presumed left renal cysts. 9. CT chest performed on this same day has been dictated separately. Dictated by... Krystyna Mcgrath M.D. THIS IS AN ELECTRONICALLY VERIFIED REPORT Krystyna Mcgrath M.D. at 09/10/2016 1:22 PM NITHYA/marian TD: 09/07/2016 18:14 JOB #: [id number] [facility]. [facility] A Service of [facility] RADIOLOGY TEXT RESULTS PATIENT: YANET RYDER LOCATION: [facility] : 34 UNIT #: [id number] AGE: [address]: Maurilio Rodriguez MD SEX: F ORDER DR: MEDICAL IMAGING REPORT Page 1 of 1 COPY
--- NOTE | ~2016-09-07 | CT55 ---
[facility] A Service of [facility] & [facility] RADIOLOGY TEXT RESULTS PATIENT: YANET RYDER [facility] : 34 UNIT #: [id number] AGE: [address]: Maurilio Rodriguez MD SEX: F ORDER DR: [id number] [facility] [address] [facility] [place], [place] [address] [id number] O MR#: [id number] [facility] #: [id number] NAME: YANET RYDER : 1935 SEX: F STUDY DATE/TIME: 09/07/2016 9:19 UNIT: [facility] ROOM: STUDY DESCRIPTION: CT Chest W Con Attending Physician: Maurilio Rodriguez M.D. Ordering Physician: Maurilio Rodriguez M.D. Primary Care Physician: Luzma Coyle M.D. MEDICAL IMAGING REPORT This report is preliminary unless electronic signature is present EXAM CT chest with contrast. DATE 81-year-old female with a history of lung cancer. COMPARISON CT chest without contrast, 06/18/2016. PROCEDURE 5 mm axial images through the chest after intravenous contrast administration. Sagittal and coronal reformatted images were obtained. This CT exam was performed with one or more of the following radiation dose reduction techniques: automatic exposure control, adjustment of mA and/or kV according to patient size, and iterative reconstruction. FINDINGS The previously described 12 x 7 mm nodule within the left lower lobe, located superiorly and abutting the major fissure, appears somewhat different reshaped, and appears slightly smaller, now measuring 7 x 7 mm compared to 1.2 x 0.8 cm on a previous study. There is new patchy ground-glass opacity within the posterior left upper lobe near the level of this nodule, and may represent mild pneumonitis changes. A similar appearing patchy airspace disease is seen peripherally in the left lower lobe, as well, increased from prior. No right lung nodule is identified. No pericardial effusion. Benign calcified granuloma in the left lung. Trace pericardial thickening or fluid. Right IJ [id number] extends to the SVC. Ascending thoracic aortic ectasia up to 3.8 cm, and mild aneurysmal dilation of the mid descending thoracic aorta 3.2 cm, aneurysmal dilation of the distal thoracic aorta up to 3.6 cm, not significantly changed. There is moderate irregular atheromatous plaquing within the distal thoracic or upper abdominal aorta. STS. [facility] A Service of [facility] & [facility] RADIOLOGY TEXT RESULTS PATIENT: YANET RYDER LOCATION: [facility] : 34 UNIT #: [id number] AGE: [address]: Maurilio Rodriguez MD SEX: F ORDER DR: Benign left adrenal myelolipoma, unchanged. Cholecystectomy. Pancreatic parenchyma appears moderately atrophic but similar to prior. No acute or suspicious osseous abnormalities are identified. Median sternotomy changes with signs of prior CABG. Degenerative endplate changes within the thoracic spine. Degenerative changes of the right shoulder. IMPRESSION 1. The left lower lobe pulmonary nodule is diminished in size since the previous study from 06/18/2016, and in comparison to the more remote CT chest from on 12/05/2015, consistent with continued response to therapy. 2. There are some patchy ground-glass alveolar disease changes in the posterior inferior left upper lobe and within the superior and lateral left lower lobe, and may represent changes of infectious or inflammatory pneumonitis. Certainly, if the patient has undergone radiation therapy, radiation pneumonitis is also a consideration. 3. Chronic pleural thickening or trace left pleural effusion in the left base, similar to prior. 4. No new pulmonary nodules. 5. Mild emphysema. 6. 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 7. CABG changes. 8. Cholecystectomy. 9. Stable benign left adrenal myelolipoma. Dictated by... Krystyna Mcgrath M.D. THIS IS AN ELECTRONICALLY VERIFIED REPORT Krystyna Mcgrath M.D. at 09/10/2016 1:22 PM NITHYA/maliha TD: 09/07/2016 16:41 JOB #: [id number] MEDICAL IMAGING REPORT Page 1 of 1 COPY
[2016-09-07 09:16] LABS: POC - CREATININE 0.94 mg/dL (0.44-1.03); POC - GFR >60.0 mL/min (>60)
== END | disposition home or self-care (01) ==
LOC: CCAT 07:44
PROVIDERS: Internal Medicine Hematology & Oncology
DX: C34.90 Malignant neoplasm of unspecified part of unspecified bronchus or lung (principal); C18.9 Malignant neoplasm of colon, unspecified; C34.32 Malignant neoplasm of lower lobe, left bronchus or lung; C18.0 Malignant neoplasm of cecum; D17.71 Benign lipomatous neoplasm of kidney; D50.9 Iron deficiency anemia, unspecified; D35.02 Benign neoplasm of left adrenal gland; R91.8 Other nonspecific abnormal finding of lung field; J98.4 Other disorders of lung; J43.9 Emphysema, unspecified; I71.2 Thoracic aortic aneurysm, without rupture; K57.30 Diverticulosis of large intestine without perforation or abscess without bleeding; M46.96 Unspecified inflammatory spondylopathy, lumbar region; N28.1 Cyst of kidney, acquired; N28.89 Other specified disorders of kidney and ureter; Z90.49 Acquired absence of other specified parts of digestive tract; Z95.1 Presence of aortocoronary bypass graft
CPT/HCPCS: 71260; 74177; 82565; J1642; Q9967

== ENCOUNTER → 2016-12-14 | Outpatient (CLI) | payer OTHER ==
--- NOTE | ~2016-12-14 | CT2 ---
[facility] A Service of [facility] & [facility] RADIOLOGY TEXT RESULTS PATIENT: YANET RYDER [facility] : 34 UNIT #: [id number] AGE: [address]: Maurilio Rodriguez MD SEX: F ORDER DR: [id number] [facility] [address] [place], [place] [address] [id number] O MR#: [id number] Acc #: [id number] NAME: YANET RYDER : 1935 SEX: F STUDY DATE/TIME: 12/14/2016 8:15 [facility] ROOM: STUDY DESCRIPTION: CT Abd and Pelv W Cont Attending Physician: Maurilio Rodriguez M.D. Referring Physician: Maruilio Rodriguez M.D. Ordering Physician: Maurilio Rodriguez M.D. Primary Care Physician: Maurilio Rodriguez M.D. MEDICAL IMAGING REPORT This report is preliminary unless electronic signature is present EXAM CT abdomen and pelvis with contrast INDICATION Follow up lung cancer. Observation for metastatic disease. The patient also has a history of colon cancer. TECHNIQUE CT scan of the abdomen and pelvis was performed following the administration of IV contrast. Coronal and sagittal reformatted images were obtained. This CT exam was performed with one or more of the following radiation dose reduction techniques: Automatic exposure control, adjustment of mA and/or kV according to patient size, and iterative reconstruction. COMPARISON Comparison with 09/07/2016. FINDINGS Please refer to separately dictated CT of the chest for findings above the diaphragm. The liver is unremarkable. Cholecystectomy. The spleen is unremarkable. Stable left adrenal gland nodule. The kidneys are unremarkable. The right adrenal gland is unremarkable. The pancreas is unremarkable. Stable fat-containing ventral abdominal wall hernia. PELVIS: Postoperative changes from a partial colectomy. There is abnormal thickening involving the colon in the region of the anastomosis. While this may be infectious or inflammatory recurrent malignancy should certainly be excluded. This finding is worrisome for recurrent malignancy. Correlation with colonoscopy is recommended. There are scattered diverticula within the sigmoid colon. The bone windows are unremarkable. There is aneurysmal dilatation of the infrarenal abdominal aorta measuring about 3.5 cm in greatest AP dimension which is slightly STS. [facility] A Service of [facility] RADIOLOGY TEXT RESULTS PATIENT: YANET RYDER LOCATION: [facility] : 34 UNIT #: [id number] AGE: [address]: Maurilio Rodriguez MD SEX: F ORDER DR: increased in size from the prior study where it measured 3.2 cm. IMPRESSION 1. Patient has had a partial colectomy. At the colonic anastomotic site, there is abnormal thickening of the colon which is very worrisome for recurrent malignancy, although this could be an infectious or inflammatory process. Further evaluation with a colonoscopy is recommended. 2. Stable left adrenal gland nodule. 3. Slight increase in size of infrarenal abdominal aortic aneurysm. Dictated by... Chidi Addison M.D. THIS IS AN ELECTRONICALLY VERIFIED REPORT Chidi Addison M.D. at 12/14/2016 4:31 PM MARIA G/santosh TD: 12/14/2016 15:54 JOB #: [id number] MEDICAL IMAGING REPORT Page 1 of 1 COPY
--- NOTE | ~2016-12-14 | CT55 ---
[facility] A Service of [facility] RADIOLOGY TEXT RESULTS PATIENT: YANET RYDER LOCATION: [facility] : 33 UNIT #: [id number] AGE: [address]: Maurilio Rodriguez MD SEX: F ORDER DR: [id number] [facility] [address] [place], [place] [address] [id number] O MR#: [id number] Acc #: [id number] NAME: YANET RYDER : 1935 SEX: F STUDY DATE/TIME: 12/14/2016 10:41 [facility]: ST[facility]Y DESCRIPTION: CT Chest W Con Attending Physician: Maurilio Rodriguez M.D. Referring Physician: Maurilio Rodriguez M.D. Ordering Physician: Maurilio Rodriguez M.D. Primary Care Physician: Maurilio Rodriguez M.D. MEDICAL IMAGING REPORT This report is preliminary unless electronic signature is present EXAM CT chest with contrast. INDICATIONS Follow up lung cancer. Patient also has a history of colon cancer. Routine surveillance. TECHNIQUE CT chest performed with contrast. Coronal and sagittal reformatted images obtained. This CT exam was performed with one or more of the following radiation dose reduction techniques: automatic exposure control, adjustment of mA and/or kV according to patient size, and iterative reconstruction. COMPARISON 09/07/2016 FINDINGS Within the left lung, there is increased interstitial thickening and areas of consolidation. This is mainly located in the central perihilar region. There is some generalized increased volume loss of the left lung. Trace pleural fluid on the left. Emphysema. Stable tiny micronodule in the posterior right upper lobe. No definite lymphadenopathy. Please refer to separately dictated CT of the abdomen and pelvis for findings below the diaphragm. Bone windows show a single, subtle rounded area of sclerosis within the L1 vertebral body best seen on image 60. It is indeterminate. Further evaluation with a bone scan may be helpful. IMPRESSION 1. Increased interstitial thickening and consolidation mainly in the mid left lung in the perihilar region. Overall it is suspected to represent post-treatment change. Continued followup recommended. 2. No definite mass or lymphadenopathy. STS. [facility] A Service of [facility] RADIOLOGY TEXT RESULTS PATIENT: YANET RYDER LOCATION: [facility] : 34 UNIT #: [id number] AGE: [address]: Maurilio Rodriguez MD SEX: F ORDER DR: 3. Subtle rounded area of sclerosis in the L1 vertebral body is indeterminate, however, it could be a small metastatic lesion. Further evaluation with bone scan may be helpful. 4. Please refer to separately dictated CT abdomen and pelvis for findings below the diaphragm. Dictated by... Chidi Addison M.D. THIS IS AN ELECTRONICALLY VERIFIED REPORT Chidi Addison M.D. at 12/17/2016 7:39 AM MARIA G/marian TD: 12/14/2016 16:44 JOB #: [id number] MEDICAL IMAGING REPORT Page 1 of 1 COPY
[2016-12-14 15:06] LABS: POC - CREATININE 1.11 mg/dL (0.44-1.03)
== END | disposition home or self-care (01) ==
LOC: CCAT 08:09
PROVIDERS: Internal Medicine Hematology & Oncology
DX: C34.32 Malignant neoplasm of lower lobe, left bronchus or lung (principal); Z85.038 Personal history of other malignant neoplasm of large intestine; D50.9 Iron deficiency anemia, unspecified; D35.02 Benign neoplasm of left adrenal gland; E27.8 Other specified disorders of adrenal gland; I71.4 Abdominal aortic aneurysm, without rupture; J18.1 Lobar pneumonia, unspecified organism; Z90.49 Acquired absence of other specified parts of digestive tract
CPT/HCPCS: 71260; 74177; 82565; 96360; 96361; J1642; Q9967